=== PATIENT | male | born 1940 | race Caucasian/White ===

== ENCOUNTER 2020-08-26 12:20 | Inpatient (IN) | payer MEDICARE, OTHER ==
[~2020-08-26] VITALS: Ht 180.3 cm; Wt 106.5 kg
[~2020-08-26 12:20] MED LIST: ACET-2267 PO; ALPR0.5T7 PO; ASCO500T17 PO; ASPI-1238 PO; BUSP5TAB59 PO; CYAN-41 PO; FERR-84 PO; FINA5TAB6 PO; LOSA50TA63 PO; PARO20TA5 PO; TIOT18CA2 IH; TMSL.4C PO
[2020-08-26] MEDS ORDERED: ONDANSETRON 4 MG (ZOFRAN) ORAL DISSOLVE TAB PO PRN (16:15)
[2020-08-26] MEDS ORDERED: ACETAMINOPHEN 325 MG TABLET PO PRN (16:15)
[2020-08-26] MEDS ORDERED: BISACODYL 10 MG SUPP (DULCOLAX) PR PRN (16:15)
[2020-08-26] MEDS ORDERED: ANTACID SUSP 30 ML UDC (MYLANTA) PO PRN (16:15)
[2020-08-26] MEDS ORDERED: MELATONIN 3 MG TABLET PO PRN (16:15)
[2020-08-26] MEDS ORDERED: ENOXAPARIN 100 MG/1 ML (LOVENOX) SYR SC SCH (16:15)
[2020-08-26] MEDS ORDERED: polyethylene glycoL POWDER 17 GM (MIRALAX) PACK PO PRN (16:15)
--- NOTE | 2020-08-26 16:20 | NUR ---
Swing Bed Note: Patient qualifies for swing bed for continued need of short term Physical and Occupational therapies (Debility r/t COVID 19) with continued oxygen monitoring and weaning (respiratory failure r/t COVID 19). Ultimate goal of patient is to get strong enough to get back to his home with his . Prior to this hospitalization patient was independent with all ADL's.
--- NOTE | 2020-08-26 16:25 | NUR ---
Admission Drug Regimen Review: Date: 08/26/20 Time: 1626 Review Completed, No Issues found
--- NOTE | 2020-08-26 16:30 | NUR ---
MARCY GUERRA JR admitted to swing bed status to room 429-1, with an admitting diagnosis of SWB , on 08/26/20 from acute inpatient status. Therapy to evaluate patient for activity needs. MARCY GUERRA JR and/or family introduced to surroundings, call light, bed controls, phone, TV, temperature control, lights, meal times, smoking policy, visitor policy, side rail policy, bathrooms, and showers. Patient rights given to patient in the handbook.. MARCY GUERRA JR and/or family member verbalized understanding that [facility] is not responsible for the loss or damage to any personal effects or valuables that are kept in the patients possession during their hospitalization. The following care plans were discussed with MARCY GUERRA JR: Discharge Plannning,,, and . MARCY GUERRA JR and/or family verbalizes understanding of the Interdisciplinary Patient Education. Patient and/or family were informed about the Rapid Response Team and its purpose. Call light with in reach and patient demonstrates understanding of how to use. MARCY GUERRA JR reports no further needs at this time.i have already done my physical assessment and will continue to monitor.
[2020-08-26 17:14] VITALS: BP 102/61
[2020-08-26] MEDS: ENOXAPARIN 100 MG/1 ML (LOVENOX) SYR SC SCH (17:42)
[2020-08-26] MEDS: TAMSULOSIN 0.4 MG (FLOMAX) CAP PO SCH (17:42)
[2020-08-26] MEDS: SENNOSIDES 8.6 MG (SENOKOT) TAB PO SCH (20:36)
[2020-08-26] MEDS: busPIRone 5 MG (BUSPAR) TAB PO SCH (20:36)
[2020-08-26] MEDS: DOCUSATE SODIUM 100 MG (COLACE) CAP PO SCH (20:36)
[2020-08-26] MEDS: ALPRAZolam 0.5 MG (XANAX) TAB PO PRN (20:36)
[2020-08-26 20:40] VITALS: BP 116/58
[2020-08-26] MEDS: inSUlin ASPART (NovoLOG) 1 UNIT/0.01 ML (CHARGE PER UNIT) SC SCH (21:25)
[2020-08-26] MEDS: CATHETER FLUSH 10 ML SYR IV SCH (21:26)
[2020-08-26] MEDS: RT-ALBUTEROL INHALER HFA (VENTOLIN HFA) 18 GM IH SCH (23:32)
[2020-08-27] MEDS: RT-ALBUTEROL INHALER HFA (VENTOLIN HFA) 18 GM IH SCH ×4 (01:27→19:23)
[2020-08-27 05:34] VITALS: BP 102/51
[2020-08-27] MEDS: CATHETER FLUSH 10 ML SYR IV SCH (05:47)
[2020-08-27] MEDS: inSUlin ASPART (NovoLOG) 1 UNIT/0.01 ML (CHARGE PER UNIT) SC SCH ×4 (05:47→20:52)
[2020-08-27] MEDS: ENOXAPARIN 100 MG/1 ML (LOVENOX) SYR SC SCH (05:54)
[2020-08-27] MEDS: UMECLIDINIUM BROMIDE (INCRUSE ELLIPTA) 7'S IH SCH (08:23)
[2020-08-27] MEDS: ASPIRIN E.C. 81 MG (ECOTRIN) TAB PO SCH (08:33)
[2020-08-27] MEDS: PARoxetine 20 MG (PAXIL) TAB PO SCH (08:33)
[2020-08-27] MEDS: DOCUSATE SODIUM 100 MG (COLACE) CAP PO SCH ×2 (08:33→21:19)
[2020-08-27] MEDS: FINASTERIDE (PROSCAR) 5 MG TAB PO SCH (08:33)
[2020-08-27] MEDS: PANTOPRAZOLE 40 MG (PROTONIX) TAB PO SCH (08:33)
[2020-08-27] MEDS: SENNOSIDES 8.6 MG (SENOKOT) TAB PO SCH ×2 (08:33→21:16)
[2020-08-27] MEDS: busPIRone 5 MG (BUSPAR) TAB PO SCH ×2 (08:33→21:19)
[2020-08-27] MEDS: LOSARTAN 50 MG (COZAAR) TAB PO SCH (08:33)
[2020-08-27] MEDS: POTASSIUM CL 10MEQ/50ML IVPB 50 ML IV SCH (09:12)
[2020-08-27] MEDS: MAGNESIUM 1 GM/100 ML IVPB 100 ML IV SCH (09:13)
[2020-08-27] MEDS: KCL 20 MEQ TAB (K-DUR) PO SCH (09:13)
[2020-08-27] MEDS: ALPRAZolam 0.5 MG (XANAX) TAB PO PRN ×2 (09:52→21:18)
--- NOTE | 2020-08-27 11:15 | Occupational Therapy Eval ---
OT Evaluation-General/PLF Medical Diagnosis Admission Date Aug 26, 2020 at 16:08 Medical Diagnosis: ARF due to COVID19 Onset Date: Aug 13, 2020 Therapy Diagnosis Therapy Diagnosis: Decreased ADL status Precautions Precautions/Isolations: Airborne Isolation, Standard Precautions Weight Bear Status Weight Bearing Restriction: Full Weight Bearing Referral Referral Reason: Activity Tolerance, Self Care, Evaluation/Treatment, Strengthening/ROM Medical History Pertinent Medical History: Smoking Additional Medical History HTN, BPH, anx/ depression, DDD Current History Pt tests + for COVID 19 from outside facility. Pt comes in from home with increased SOB 08/13. Pt swings 08/27 Reviewed History: Yes Social History Home: Single Level Current Living Status: Spouse Entry Into Home: Stairs With Railing Steps Into Home: 3 ADL-Prior Level of Function SCALE: Activities may be completed with or without assistive devices. 6-Xwqkapyvtu-kulejgu completes the activity by him/herself with no assistance from a helper. 5-Set-up or Clean-up Assistance-helper sets up or cleans up; patient completes activity. [place] assists only prior to or following the activity. 4-Supervision or Touching Assistance-helper provides verbal cues and/or touching/steadying and/or contact guard assistance as patient completes activity. Assistance may be provided throughout the activity or intermittently. 3-Partial/Moderate Assistance-helper does LESS THAN HALF the effort. [place] lifts, holds or supports trunk or limbs, but provides less than half the effort. 2-Substantial/Maximal Assistance-helper does MORE THAN HALF the effort. [place] lifts or holds trunk or limbs and provides more than half the effort. 8-Myiqdmypd-gskxov does ALL the effort. Patient does none of the effort to complete the activity. Or, the assistance of 2 or more helpers is required for the patient to complete the activity. If activity was not attempted, code reason: 7-Patient Refused. 9-Not Applicable-not attempted and the patient did not perform the activity before the current illness, exacerbation or injury. 10-Not Attempted due to Environmental Limitations-(lack of equipment, weather restraints, etc.). 88-Not Attempted due to Medical Conditions or Safety Concerns. ADL PLOF Comments IND without use of AE Self Care: Independent Functional Cognition: Independent DME/Equipment: Bath Bench, Grab Bars, Shower DME/Equipment Comments bc, gb, shower Occupation: retired [employer] [address] Self: Yes OT Current Status Subjective Pt in recliner upon entry. Alert/ oriented. Pt agrees to OT eval/ treat, desires showering. Pt denies pain, states desire for home. Pt is educated on SWB status and increase of OT. Pt agrees. Pt has intermittent SOB, requires cues for breathing techniques. Mental Status/Objective Patient Orientation: Person, Place, Situation, Normal For Age Attachments: Oxygen (8) Current Glasses/Contacts: Yes Hearing Aids: No Dentures/Partials: Yes Hand Dominance: Right Upper Extremity ROM WFL BUE Upper Extremity Coordination WFL BUE Upper Extremity Sensation WFL BUE Upper Extremity Strength WFL BUE (4/5) Edema: none noted. ADL-Treatment Eating (QC): 6 Oral Hygiene (QC): 6 Shower/Bathe Self (QC): 4 (SBA during stance, cues for breath in trunk flexion) Upper Body Dressing (QC): 6 (IND in stance. Button up. Pt's 02 at 89% in stance. Regains within 30 sec to 90%) Lower Body Dressing (QC): 4 (SBA, cues for breath in bending/ recovery post- bending.) On/Off Footwear (QC): 3 (min A due to fatigue/ SOB/ new socks.) Toileting Hygiene (QC): 4 (SBA in stance.) Other Treatments Pt sit to stand with SUP. Pt ambulates to shower, cues for positioning/ safety. Pt doffs clothes SBA/ showering with SBA. 02 monitored prior/ immediately post- shower with >90% found. Pt dresses/ during bending requires cues for breath. Pt sit to stand and ambulates to chair with good balance with walker. Pt's 02 88% upon sit. Pt cues for breath. Stands during UB dressing (good balance in static stance, no use of walker). Cues for breath due to 89% 02 reading. No SOB noted. Pt denies needs, call light in reach, pt educated on continued OT for rehabilitation and increase of fx activity tolerance/ breath support during tasks. Pt agrees. Education OT Patient Education: Correct positioning, Modified ADL techniques, Progress toward Goal/Update tx plan, Purpose of tx/functional activities, Rehab process, Safety issues, Transfer techniques Teaching Recipient: Patient Teaching Methods: Demonstration, Discussion Response to Teaching: Verbalize Understanding, Return Demonstration, Reinforcement Needed OT Short Term Goals Short Term Goals Lower body dressin Putting on/taking off footwear: 5 OT Fpc Goals Hydro Excavation Operator Goals Time Frame: Sep 10, 2020 Eating (QC): 6 Oral Hygiene (QC): 6 Toileting Hygiene (QC): 6 Shower/Bathe Self (QC): 6 Upper Body Dressing (QC): 6 Lower Body Dressing (QC): 6 On/Off Footwear (QC): 6 1=Demonstrate adherence to instructed precautions during ADL tasks. 2=Patient will verbalize/demonstrate understanding of assistive devices/modifications for ADL. 3=Patient will improve strength/tolerance for activity to enable patient to perform ADL's. OT Education/Plan Problem List/Assessment Assessment: Decreased Activ Tolerance, Impaired Funct Balance, Impaired I ADL's, Impaired Self-Care Skills Discharge Recommendations Plan/Recommendations: Continue POC Therapy Discharge Recommendati: Home & Family, Post Acute OT Treatment Plan/Plan of Care Treatment,Training & Education: Yes Patient would benefit from OT for education, treatment and training to promote independence in ADL's, mobility, safety and/or upper extremity function for ADL's. Plan of Care: ADL Retraining, Functional Mobility, UE Funct Exercise/Act Treatment Duration: Sep 10, 2020 Frequency: 5 times per week Estimated Hrs Per Day: .25 hour per day Agreement: Yes Rehab Potential: Fair Time/GCodes Start Time: 10:40 Stop Time: 11:05 Total Time Billed (hr/min): 25 Billed Treatment Time 1, EVM (10), ADL (15)= 25 JOSE C PARSON OTR Aug 27, 2020 11:15
--- NOTE | 2020-08-27 15:43 | Physical Therapy Evaluation ---
PT Evaluation-General Medical Diagnosis Admission Date Aug 26, 2020 at 16:08 Medical Diagnosis: ARF due to COVID19 Onset Date: Aug 12, 2020 Therapy Diagnosis Therapy Diagnosis: impaired mobility, strength, endurance Precautions Precautions/Isolations: Airborne Isolation, Standard Precautions Referral Physician: Carmen Reason for Referral: Evaluation/Treatment Medical History Pertinent Medical History: Smoking Additional Medical History Past Medical History Surgeries: Cardiac, Joint Replacement Cardiac: High Cholesterol, Hypertension Gastrointestinal: Pancreatitis Musculoskeletal: Degenerate Disk Disease Psychosocial: Anxiety Reviewed History: Yes Social History Home: Single Level Current Living Status: Spouse Entry Into Home: Stairs With Railing PT Steps Into Home: 3 Prior Prior Level of Function SCALE: Activities may be completed with or without assistive devices. 2-Pczsjdroht-ingrlkz completes the activity by him/herself with no assistance from a helper. 5-Set-up or Clean-up Assistance-helper sets up or cleans up; patient completes activity. [place] assists only prior to or following the activity. 4-Supervision or Touching Assistance-helper provides verbal cues and/or touching/steadying and/or contact guard assistance as patient completes activity. Assistance may be provided throughout the activity or intermittently. 3-Partial/Moderate Assistance-helper does LESS THAN HALF the effort. [place] lifts, holds or supports trunk or limbs, but provides less than half the effort. 2-Substantial/Maximal Assistance-helper does MORE THAN HALF the effort. [place] lifts or holds trunk or limbs and provides more than half the effort. 7-Zoamenvwe-ihfxzi does ALL the effort. Patient does none of the effort to complete the activity. Or, the assistance of 2 or more helpers is required for the patient to complete the activity. If activity was not attempted, code reason: 7-Patient Refused. 9-Not Applicable-not attempted and the patient did not perform the activity before the current illness, exacerbation or injury. 10-Not Attempted due to Environmental Limitations-(lack of equipment, weather restraints, etc.). 88-Not Attempted due to Medical Conditions or Safety Concerns. Bed Mobility: 6 Transfers (B,C,W/C): 6 Gait: 6 Stairs: 6 Indoor Mobility (Ambulation): Independent Stairs: Independent PT Evaluation-Current Subjective Patient in recliner pre tx, agrees to PT, has minor pain in bottom due to sitting or laying on it. Pt/Family Goals to get stronger and get off oxygen Objective Patient Orientation: Person, Place, Situation Attachments: Oxygen ROM/Strength ROM Lower Extremities WNL Strength Lower Extremities 4+/5 gross BLE Sensory Hearing: Functional Hand Dominance: Right Sensation Right Lower Extremit: Intact Sensation Left Lower Extremity: Intact Transfers Roll Left & Right (QC): 6 Sit to Lying (QC): 6 Lying to Sitting/Side of Bed(Q: 6 Sit to Stand (QC): 5 Chair/Fzt-pk-Ofzsj Xfer(QC): 5 Toilet Transfer (QC): 5 Car Transfer (QC): 9 Gait Does the Patient Walk?: Yes Mode of Locomotion: Walk Anticipated Mode of Locomotion: Walk Walk 10 feet (QC): 5 Walk 50 ft with 2 Turns(QC): 5 Walk 150 ft (QC): 5 Walking 10ft/uneven surface-QC: 9 Distance: 150' Gait Assistive Device: FWW Comments/Gait Description slow but steady ambulation, improving balance especially when turning Wheelchair Training Wheel 50 ft with 2 turns (QC): 9 Wheel 150 ft (QC): 9 Stairs 1 Step (curb) (QC): 9 4 Steps (QC): 9 12 Steps (QC): 9 Balance Sitting Static: Normal Sitting Dynamic: Normal Standing Static: Good Standing Dynamic: Good Picking up an Object (QC): 5 Treatment BLE seated exercises x20 (AP, LAQ, marching) Assessment/Needs Patient has impaired mobility, strength, endurance. He gets SOB with activity but recovers quickly. Rehab Potential: Fair PT Block Saw Operator Goals Block Saw Operator Goals PT Block Saw Operator Goals Time Frame: Sep 03, 2020 Roll Left & Right (QC): 6 Sit to Lying (QC): 6 Lying-Sitting on Side/Bed(QC): 6 Sit to Stand (QC): 6 Chair/Pek-xo-Brajo Xfer(QC): 6 Toilet Transfer (QC): 6 Car Transfer (QC): 9 Does the Patient Walk: Yes Walk 10 feet (QC): 6 Walk 50ft with 2 Turns (QC): 6 Walk 150 ft (QC): 6 Walking 10ft on Uneven Surface: 9 1 Step (curb) (QC): 9 4 Steps (QC): 9 12 Steps (QC): 9 Picking up an Object (QC): 6 Wheel 50 feet with 2 turns (QC: 9 Wheel 150 feet: 9 PT Plan Problem List Problem List: Activity Tolerance, Functional Strength, Safety, Balance, Gait, Transfer Treatment/Plan Treatment Plan: Continue Plan of Care Treatment Plan: Education, Functional Activity Syeda, Functional Strength, Gait, Safety, Therapeutic Exercise, Transfers Treatment Duration: Sep 03, 2020 Frequency: 6 times per week Estimated Hrs Per Day: .25 hour per day Patient and/or Family Agrees t: Yes Safety Risks/Education Patient Education: Gait Training, Transfer Techniques, Correct Positioning, Safety Issues Teaching Recipient: Patient Teaching Methods: Demonstration, Discussion Response to Teaching: Reinforcement Needed Discharge Recommendations Plan Patient will perform bed mobility and transfer training, balance and endurance training, functional strengthening, stair training, gait training, and education, to improve functional mobility and independence at home. Therapy Discharge Recommendati: Home & Family Time/GCodes Time In: 1440 Time Out: 1510 Total Billed Treatment Time: 30 Total Billed Treatment 1 visit EVM 20' FA 10' YONAS SUAZO PT Aug 27, 2020 15:43
[2020-08-27] MEDS: TAMSULOSIN 0.4 MG (FLOMAX) CAP PO SCH (17:34)
[2020-08-27 18:00] VITALS: BP 97/51
[2020-08-28] MEDS: RT-ALBUTEROL INHALER HFA (VENTOLIN HFA) 18 GM IH SCH ×4 (02:13→23:15)
[2020-08-28 06:03] VITALS: BP 95/50
[2020-08-28] MEDS: KCL 20 MEQ TAB (K-DUR) PO SCH (06:12)
[2020-08-28] MEDS: POTASSIUM CL 10MEQ/50ML IVPB 50 ML IV SCH (06:12)
[2020-08-28] MEDS: inSUlin ASPART (NovoLOG) 1 UNIT/0.01 ML (CHARGE PER UNIT) SC SCH (06:12)
[2020-08-28] MEDS: MAGNESIUM 1 GM/100 ML IVPB 100 ML IV SCH (06:12)
[2020-08-28 07:51] VITALS: BP 114/56
[2020-08-28] MEDS: PANTOPRAZOLE 40 MG (PROTONIX) TAB PO SCH (08:36)
[2020-08-28] MEDS: LOSARTAN 50 MG (COZAAR) TAB PO SCH (08:36)
[2020-08-28] MEDS: ASPIRIN E.C. 81 MG (ECOTRIN) TAB PO SCH (08:36)
[2020-08-28] MEDS: SENNOSIDES 8.6 MG (SENOKOT) TAB PO SCH ×2 (08:36→20:32)
[2020-08-28] MEDS: busPIRone 5 MG (BUSPAR) TAB PO SCH ×2 (08:36→20:32)
[2020-08-28] MEDS: ENOXAPARIN 40 MG/0.4 ML (LOVENOX) SYR SC SCH (08:37)
[2020-08-28] MEDS: FINASTERIDE (PROSCAR) 5 MG TAB PO SCH (08:37)
[2020-08-28] MEDS: DOCUSATE SODIUM 100 MG (COLACE) CAP PO SCH ×2 (08:37→20:32)
[2020-08-28] MEDS: PARoxetine 20 MG (PAXIL) TAB PO SCH (08:37)
[2020-08-28] MEDS ORDERED: ENOXAPARIN 100 MG/1 ML (LOVENOX) SYR SC SCH (09:00)
[2020-08-28] MEDS: UMECLIDINIUM BROMIDE (INCRUSE ELLIPTA) 7'S IH SCH (10:20)
--- NOTE | 2020-08-28 10:24 | Occupational Ther Daily Note ---
OT Current Status-Daily Note Subjective Pt in recliner. Alert/ oriented. Agrees to tx. Motivated to return home. Now on 6L 02. States completed ther ex with theraband 2-3x yesterday. States feels less SOB. Mental Status/Objective Patient Orientation: Normal For Age Attachments: Oxygen (6L) ADL-Treatment Therapy Code Descriptions/Definitions Functional [place] Measure: 0=Not Assessed/NA 4=Minimal Assistance 1=Total Assistance 5=Supervision or Setup 2=Maximal Assistance 6=Modified [place] 3=Moderate Assistance 7=Complete IndependenceSCALE: Activities may be completed with or without assistive devices. 0-Dnqxmfogrv-fnwgljz completes the activity by him/herself with no assistance from a helper. 5-Set-up or Clean-up Assistance-helper sets up or cleans up; patient completes activity. [place] assists only prior to or following the activity. 4-Supervision or Touching Assistance-helper provides verbal cues and/or touching/steadying and/or contact guard assistance as patient completes activity. Assistance may be provided throughout the activity or intermittently. 3-Partial/Moderate Assistance-helper does LESS THAN HALF the effort. [place] lifts, holds or supports trunk or limbs, but provides less than half the effort. 2-Substantial/Maximal Assistance-helper does MORE THAN HALF the effort. [place] lifts or holds trunk or limbs and provides more than half the effort. 1-Tcbnwjbht-zqifat does ALL the effort. Patient does none of the effort to complete the activity. Or, the assistance of 2 or more helpers is required for the patient to complete the activity. If activity was not attempted, code reason: 7-Patient Refused. 9-Not Applicable-not attempted and the patient did not perform the activity before the current illness, exacerbation or injury. 10-Not Attempted due to Environmental Limitations-(lack of equipment, weather restraints, etc.). 88-Not Attempted due to Medical Conditions or Safety Concerns. Eating (QC): 6 Shower/Bathe Self (QC): 7 Toilet Transfer (QC): 7 Other Treatment Pt in recliner. Sit to stands IND to walker level. Pt completes 5-6 min standing ther ex to focus on fx activity tolerance, UE movement/ strength and balance. Pt completes 10-15 reps bilaterally in stance of the following exercises: bicep curls, shoulder flexion, tricep extension. Pt's 02 maintains >90%. Pt sits for rest, completes 15 reps of scaption bilaterally and external shoulder rotation. Pt's 02 maintain. Pt denies toileting/ ADL tasks. Pt left in room with all needs met, call light in reach. Nursing notified of pt's sats. Education OT Patient Education: Disease process, Exercise program, Home exercise program, Progress toward Goal/Update tx plan Teaching Recipient: Patient Teaching Methods: Demonstration, Discussion Response to Teaching: Verbalize Understanding, Return Demonstration OT Short Term Goals Short Term Goals Lower body dressin Putting on/taking off footwear: 5 OT [place] Neck Whipper Goals [place] Neck Whipper Goals Time Frame: Sep 10, 2020 Eating (QC): 6 Oral Hygiene (QC): 6 Toileting Hygiene (QC): 6 Shower/Bathe Self (QC): 6 Upper Body Dressing (QC): 6 Lower Body Dressing (QC): 6 On/Off Footwear (QC): 6 1=Demonstrate adherence to instructed precautions during ADL tasks. 2=Patient will verbalize/demonstrate understanding of assistive devices/modifications for ADL. 3=Patient will improve strength/tolerance for activity to enable patient to perform ADL's. OT Education/Plan Problem List/Assessment Assessment: Decreased Activ Tolerance, Edema, Impaired I ADL's Discharge Recommendations Plan/Recommendations: Continue POC Therapy Discharge Recommendati: Home & Family, Post Acute OT Treatment Plan/Plan of Care Treatment,Training & Education: Yes Patient would benefit from OT for education, treatment and training to promote independence in ADL's, mobility, safety and/or upper extremity function for ADL's. Plan of Care: ADL Retraining, Functional Mobility, UE Funct Exercise/Act Treatment Duration: Sep 10, 2020 Frequency: 5 times per week Estimated Hrs Per Day: .25 hour per day Agreement: Yes Rehab Potential: Fair Time/GCodes Start Time: 09:50 Stop Time: 10:05 Total Time Billed (hr/min): 15 Billed Treatment Time 1, EX (15) JOSE C PARSON OTR Aug 28, 2020 10:24
--- NOTE | 2020-08-28 15:40 | Physical Therapy Daily Note ---
PT Daily Note-Current Subjective Patient in recliner pre tx, agrees to PT, no complaints of pain. Appearance Patient in recliner post tx with nurse call, phone, tray, all needs met Mental Status Patient Orientation: Normal For Age Attachments: Oxygen Transfers SCALE: Activities may be completed with or without assistive devices. 0-Empekpbmbt-luutvou completes the activity by him/herself with no assistance from a helper. 5-Set-up or Clean-up Assistance-helper sets up or cleans up; patient completes activity. [place] assists only prior to or following the activity. 4-Supervision or Touching Assistance-helper provides verbal cues and/or touching/steadying and/or contact guard assistance as patient completes activity. Assistance may be provided throughout the activity or intermittently. 3-Partial/Moderate Assistance-helper does LESS THAN HALF the effort. [place] lifts, holds or supports trunk or limbs, but provides less than half the effort. 2-Substantial/Maximal Assistance-helper does MORE THAN HALF the effort. [place] lifts or holds trunk or limbs and provides more than half the effort. 7-Rnimxicjl-wpxksb does ALL the effort. Patient does none of the effort to complete the activity. Or, the assistance of 2 or more helpers is required for the patient to complete the activity. If activity was not attempted, code reason: 7-Patient Refused. 9-Not Applicable-not attempted and the patient did not perform the activity before the current illness, exacerbation or injury. 10-Not Attempted due to Environmental Limitations-(lack of equipment, weather restraints, etc.). 88-Not Attempted due to Medical Conditions or Safety Concerns. Sit to Stand (QC): 5 Chair/Lwr-bo-Lsyrp Xfer(QC): 5 Gait Training Distance: 200' Walk 10 feet (QC): 5 Walk 50 ft with 2 Turns(QC): 5 Walk 150 ft (QC): 5 Gait Assistive Device: FWW Patient ambulated to the doorway and around his room several times for a total of about 200' with a rolling walker with setup, no LOB but slow ambulation, slightly SOB after ambulation Exercises Seated Therapy Exercises: Ankle pumps, Long arc quads Seated Reps: 20 Treatments ambulation, LE exercise Assessment Current Status: Fair Progress improving endurance, on less oxygen now PT Cdl Program Coordinator Goals Cdl Program Coordinator Goals PT Cdl Program Coordinator Goals Time Frame: Sep 03, 2020 Roll Left & Right (QC): 6 Sit to Lying (QC): 6 Lying-Sitting on Side/Bed(QC): 6 Sit to Stand (QC): 6 Chair/Cbw-zs-Wswyg Xfer(QC): 6 Toilet Transfer (QC): 6 Car Transfer (QC): 9 Does the Patient Walk: Yes Walk 10 feet (QC): 6 Walk 50ft with 2 Turns (QC): 6 Walk 150 ft (QC): 6 Walking 10ft on Uneven Surface: 9 1 Step (curb) (QC): 9 4 Steps (QC): 9 12 Steps (QC): 9 Picking up an Object (QC): 6 Wheel 50 feet with 2 turns (QC: 9 Wheel 150 feet: 9 PT Plan Problem List Problem List: Activity Tolerance, Functional Strength, Safety, Balance, Gait, Transfer Treatment/Plan Treatment Plan: Continue Plan of Care Treatment Plan: Education, Functional Activity Syeda, Functional Strength, Gait, Safety, Therapeutic Exercise, Transfers Treatment Duration: Sep 03, 2020 Frequency: 6 times per week Estimated Hrs Per Day: .25 hour per day Patient and/or Family Agrees t: Yes Safety Risks/Education Patient Education: Gait Training, Transfer Techniques, Correct Positioning, Safety Issues Teaching Recipient: Patient Teaching Methods: Demonstration, Discussion Response to Teaching: Reinforcement Needed Time/GCodes Time In: 1515 Time Out: 1530 Total Billed Treatment Time: 15 Total Billed Treatment 1 visit GT 15' YONAS SUAZO PT Aug 28, 2020 15:40
[2020-08-28 16:39] VITALS: BP 103/56
[2020-08-28 17:51] VITALS: BP 103/56
[2020-08-28] MEDS: TAMSULOSIN 0.4 MG (FLOMAX) CAP PO SCH (17:54)
[2020-08-28] MEDS: ALPRAZolam 0.5 MG (XANAX) TAB PO PRN (20:32)
[2020-08-29] MEDS: RT-ALBUTEROL INHALER HFA (VENTOLIN HFA) 18 GM IH SCH ×4 (01:19→23:15)
[2020-08-29 03:47] VITALS: BP 116/62
[2020-08-29 05:48] VITALS: BP 116/62
[2020-08-29] MEDS: KCL 20 MEQ TAB (K-DUR) PO SCH (07:05)
[2020-08-29] MEDS: UMECLIDINIUM BROMIDE (INCRUSE ELLIPTA) 7'S IH SCH (07:37)
[2020-08-29] MEDS: ASPIRIN E.C. 81 MG (ECOTRIN) TAB PO SCH (08:30)
[2020-08-29] MEDS: SENNOSIDES 8.6 MG (SENOKOT) TAB PO SCH ×2 (08:30→20:14)
[2020-08-29] MEDS: DOCUSATE SODIUM 100 MG (COLACE) CAP PO SCH ×2 (08:30→20:14)
[2020-08-29] MEDS: LOSARTAN 50 MG (COZAAR) TAB PO SCH (08:31)
[2020-08-29] MEDS: busPIRone 5 MG (BUSPAR) TAB PO SCH ×2 (08:31→20:09)
[2020-08-29] MEDS: PANTOPRAZOLE 40 MG (PROTONIX) TAB PO SCH (08:31)
[2020-08-29] MEDS: ENOXAPARIN 40 MG/0.4 ML (LOVENOX) SYR SC SCH (08:31)
[2020-08-29] MEDS: FINASTERIDE (PROSCAR) 5 MG TAB PO SCH (08:31)
[2020-08-29] MEDS: PARoxetine 20 MG (PAXIL) TAB PO SCH (08:31)
--- NOTE | 2020-08-29 10:37 | Physical Therapy Daily Note ---
PT Daily Note-Current Subjective Pt agreeable to PT. Agrees to ther ex. Mental Status Patient Orientation: Person, Place, Time, Situation Attachments: Oxygen Transfers SCALE: Activities may be completed with or without assistive devices. 5-Bnkzyvxwdx-nhpasyk completes the activity by him/herself with no assistance from a helper. 5-Set-up or Clean-up Assistance-helper sets up or cleans up; patient completes activity. [place] assists only prior to or following the activity. 4-Supervision or Touching Assistance-helper provides verbal cues and/or touching/steadying and/or contact guard assistance as patient completes activity. Assistance may be provided throughout the activity or intermittently. 3-Partial/Moderate Assistance-helper does LESS THAN HALF the effort. [place] lifts, holds or supports trunk or limbs, but provides less than half the effort. 2-Substantial/Maximal Assistance-helper does MORE THAN HALF the effort. [place] lifts or holds trunk or limbs and provides more than half the effort. 8-Hanwvdqmj-oqtdyf does ALL the effort. Patient does none of the effort to complete the activity. Or, the assistance of 2 or more helpers is required for the patient to complete the activity. If activity was not attempted, code reason: 7-Patient Refused. 9-Not Applicable-not attempted and the patient did not perform the activity before the current illness, exacerbation or injury. 10-Not Attempted due to Environmental Limitations-(lack of equipment, weather restraints, etc.). 88-Not Attempted due to Medical Conditions or Safety Concerns. Sit to Stand (QC): 4 Gait Training Does the Patient Walk?: Yes Walk 10 feet (QC): 4 Walk 50 ft with 2 Turns(QC): 4 Walk 150 ft (QC): 4 (150 ft x 2 in room with walker with SBA and oxygen in situ) Exercises Seated Therapy Exercises: Ankle pumps, Sit to stand (x 5 each), Long arc quads, Hip flexion, Hip abd/add Seated Reps: 20 Treatments Gait and ther ex; oxygen in situ during and post treatment, Assessment Current Status: Good Progress Progressing well with good functional mobility. Slightly SOA with ambulation but recovers quickly with rest. PT [place] Goals [place] Goals PT [place]erson Goals Time Frame: Sep 03, 2020 Roll Left & Right (QC): 6 Sit to Lying (QC): 6 Lying-Sitting on Side/Bed(QC): 6 Sit to Stand (QC): 6 Chair/Fmp-bb-Chvti Xfer(QC): 6 Toilet Transfer (QC): 6 Car Transfer (QC): 9 Does the Patient Walk: Yes Walk 10 feet (QC): 6 Walk 50ft with 2 Turns (QC): 6 Walk 150 ft (QC): 6 Walking 10ft on Uneven Surface: 9 1 Step (curb) (QC): 9 4 Steps (QC): 9 12 Steps (QC): 9 Picking up an Object (QC): 6 Wheel 50 feet with 2 turns (QC: 9 Wheel 150 feet: 9 PT Plan Problem List Problem List: Activity Tolerance, Functional Strength, Safety Treatment/Plan Treatment Plan: Continue Plan of Care Treatment Plan: Education, Functional Activity Syeda, Functional Strength, Gait, Safety, Therapeutic Exercise, Transfers Treatment Duration: Sep 03, 2020 Frequency: 6 times per week Estimated Hrs Per Day: .25 hour per day Patient and/or Family Agrees t: Yes Safety Risks/Education Patient Education: Safety Issues Teaching Recipient: Patient Teaching Methods: Discussion Response to Teaching: Verbalize Understanding Time/GCodes Time In: 930 Time Out: 955 Total Billed Treatment Time: 25 Total Billed Treatment visit EX 15 GT 10 KAREN CASTANEDA PT Aug 29, 2020 10:37
--- NOTE | 2020-08-29 13:06 | Occupational Ther Daily Note ---
OT Current Status-Daily Note Subjective Pt in recliner. Alert/oriented. Agrees to tx. Pt denies pain. Mental Status/Objective Patient Orientation: Normal For Age Attachments: Oxygen (5L) ADL-Treatment Therapy Code Descriptions/Definitions Functional [place] Measure: 0=Not Assessed/NA 4=Minimal Assistance 1=Total Assistance 5=Supervision or Setup 2=Maximal Assistance 6=Modified [place] 3=Moderate Assistance 7=Complete IndependenceSCALE: Activities may be completed with or without assistive devices. 6-Kdnomtcrlb-imnbztz completes the activity by him/herself with no assistance from a helper. 5-Set-up or Clean-up Assistance-helper sets up or cleans up; patient completes activity. [place] assists only prior to or following the activity. 4-Supervision or Touching Assistance-helper provides verbal cues and/or touching/steadying and/or contact guard assistance as patient completes activity. Assistance may be provided throughout the activity or intermittently. 3-Partial/Moderate Assistance-helper does LESS THAN HALF the effort. [place] lifts, holds or supports trunk or limbs, but provides less than half the effort. 2-Substantial/Maximal Assistance-helper does MORE THAN HALF the effort. [place] lifts or holds trunk or limbs and provides more than half the effort. 5-Oosygcpmx-lgfllr does ALL the effort. Patient does none of the effort to complete the activity. Or, the assistance of 2 or more helpers is required for the patient to complete the activity. If activity was not attempted, code reason: 7-Patient Refused. 9-Not Applicable-not attempted and the patient did not perform the activity before the current illness, exacerbation or injury. 10-Not Attempted due to Environmental Limitations-(lack of equipment, weather restraints, etc.). 88-Not Attempted due to Medical Conditions or Safety Concerns. Eating (QC): 6 Oral Hygiene (QC): 6 Shower/Bathe Self (QC): 4 (SBA sponge bath) Upper Body Dressing (QC): 6 On/Off Footwear: 4 (cues for breath) Other Treatment Pt in chair. Completes 3 laps around with walker. Pt states SOB, sits EOB. Pt returns to chair to complete sponge bath with SBA-SUP. Pt denies SOB, cues s for breath upon bending. Pt denies needs, call light in reach. Education OT Patient Education: Correct positioning, Progress toward Goal/Update tx plan, Purpose of tx/functional activities, Reviewed precautions, Safety issues Teaching Recipient: Patient Teaching Methods: Demonstration, Discussion Response to Teaching: Verbalize Understanding, Return Demonstration OT Short Term Goals Short Term Goals Lower body dressin Putting on/taking off footwear: 5 OT Hosiery Pairer Goals Fdc Goals Time Frame: Sep 10, 2020 Eating (QC): 6 Oral Hygiene (QC): 6 Toileting Hygiene (QC): 6 Shower/Bathe Self (QC): 6 Upper Body Dressing (QC): 6 Lower Body Dressing (QC): 6 On/Off Footwear (QC): 6 1=Demonstrate adherence to instructed precautions during ADL tasks. 2=Patient will verbalize/demonstrate understanding of assistive devices/modifications for ADL. 3=Patient will improve strength/tolerance for activity to enable patient to perform ADL's. OT Education/Plan Problem List/Assessment Assessment: Decreased Activ Tolerance, Decreased UE Strength, Impaired I ADL's, Impaired Self-Care Skills Discharge Recommendations Plan/Recommendations: Continue POC Therapy Discharge Recommendati: Home & Family, Post Acute OT Treatment Plan/Plan of Care Treatment,Training & Education: Yes Patient would benefit from OT for education, treatment and training to promote i ndependence in ADL's, mobility, safety and/or upper extremity function for ADL's. Plan of Care: ADL Retraining, Functional Mobility, UE Funct Exercise/Act Treatment Duration: Sep 10, 2020 Frequency: 5 times per week Estimated Hrs Per Day: .25 hour per day Agreement: Yes Rehab Potential: Fair Time/GCodes Start Time: 11:05 Stop Time: 11:30 Total Time Billed (hr/min): 25 Billed Treatment Time 1, CELSA GARCIA KAILEY OTR Aug 29, 2020 13:06
--- NOTE | 2020-08-29 14:16 | Progress Note - Hospitalist ---
Subjective HPI/CC On Admission Date Seen by Provider: Aug 29, 2020 Time Seen by Provider: 11:00 Subjective/Events-last exam He is up working with physical therapy. He continues to improve. He has no complaints or concerns. Objective Exam Vital Signs Vital Signs Date Time Temp Pulse Resp B/P (MAP) Pulse Ox O2 Delivery O2 Flow Rate FiO2 08/29/20 09:00 High Flow N/C 5.00 08/29/20 07:38 94 08/29/20 05:48 36.4 64 20 116/62 (80) Capillary Refill : Less Than 3 SecondsLess Than 3 Seconds General Appearance: No Apparent Distress, Chronically ill Neck: Normal Inspection, Supple Respiratory: Lungs Clear, Normal Breath Sounds, No Respiratory Distress Cardiovascular: Regular Rate, Rhythm, No Edema, No Murmur Gastrointestinal: Normal Bowel Sounds, Non Tender, Soft Extremity: Normal Inspection, Non Tender, No Pedal Edema Neurologic/Psychiatric: Alert, Oriented x3, No Motor/Sensory Deficits, Normal Mood/Affect Skin: Normal Color, Warm/Dry Results/Procedures Lab Patient resulted labs reviewed. Imaging: Reviewed Imaging Report Assessment/Plan Assessment and Plan Assess & Plan/Chief Complaint Acute respiratory failure due to COVID-19 Pneumonia due to COVID-19 Supplemental oxygen as needed, down to 4 L nasal cannula Received decadron, remdesivir and convalescent plasma Debility PT/OT Prediabetes HTN Anxiety Depression BPH Continue home meds DVT Prophylaxis: Lovenox Diagnosis/Problems Diagnosis/Problems (1) Acute respiratory failure due to COVID-19 Status: Acute (2) Pneumonia due to COVID-19 virus Status: Acute (3) Debility Status: Acute Clinical Quality Measures DVT/VTE Risk/Contraindication: Risk Factor Score Per Nursin DAVID CARBAJAL MD Aug 29, 2020 14:16
--- NOTE | 2020-08-29 15:05 | NUR ---
"RD ASSESSMENT PMHx: COPD; pancreatitis; HTN; hypercholesterolemia; PT INTERACTION: Note pt is currently in COVID isolation, per chart review. Note all diet information for nutrition follow-up is per Sohail RN or per chart review. Sohail states current appetite appears good. Note avg PO intake 96% x3d, per chart review. Sohail states no issues with nausea, vomiting, constipation, or diarrhea that he is aware of. Note last BM was 08/27, and pt currently on bowel regimen of colace BID, and senna BID, per chart review. ABNORMAL NUTRITION-RELATED LAB VALUES No recent labs drawn at this time. Est. kcal needs: 6465-7060 kcal | 15-20 kcal/kg Est. Pro needs: 85-107 g Pro | 0.8-1.0 g Pro/kg PES STATEMENT: Given current PO intake, no nutrition diagnosis at this time (NO-1.1). INTERVENTION: Continue with current diet order of Regular diet. DC current supplementation order of Ensure Enlive with meals TID. Note pt is consuming >75% meals. Will continue to follow and reassess as pt needs, intake, and status change. Daniel Tapia, MS RD LD"
--- NOTE | 2020-08-29 16:44 | NUR ---
Visited with patient's Wilda. We talked about possible discharge to home on Tuesday if Karlo continues to make improvements like he has been. He is using 4LPM via [place] of oxygen and is currently tolerating that well. If oxygen is needed then she indicated they would like to use [facility]. She requested home health care to help monitor his oxygen saturations and ensure strengthening once home. She indicated that they would like home health care from [facility]. Will f/u with Karlo and Wilda on Tuesday for finalized discharge planning.
[2020-08-29 17:00] VITALS: BP 109/55
[2020-08-29] MEDS: TAMSULOSIN 0.4 MG (FLOMAX) CAP PO SCH (18:22)
[2020-08-29] MEDS: ALPRAZolam 0.5 MG (XANAX) TAB PO PRN (20:09)
[2020-08-30] MEDS: RT-ALBUTEROL INHALER HFA (VENTOLIN HFA) 18 GM IH SCH ×4 (04:05→22:59)
[2020-08-30 04:19] VITALS: BP 109/55
[2020-08-30] MEDS: KCL 20 MEQ TAB (K-DUR) PO SCH (05:38)
[2020-08-30 05:39] VITALS: BP 118/56
[2020-08-30] MEDS: UMECLIDINIUM BROMIDE (INCRUSE ELLIPTA) 7'S IH SCH (07:37)
[2020-08-30] MEDS: LOSARTAN 50 MG (COZAAR) TAB PO SCH (09:08)
[2020-08-30] MEDS: DOCUSATE SODIUM 100 MG (COLACE) CAP PO SCH ×2 (09:08→19:23)
[2020-08-30] MEDS: PANTOPRAZOLE 40 MG (PROTONIX) TAB PO SCH (09:08)
[2020-08-30] MEDS: ASPIRIN E.C. 81 MG (ECOTRIN) TAB PO SCH (09:08)
[2020-08-30] MEDS: FINASTERIDE (PROSCAR) 5 MG TAB PO SCH (09:09)
[2020-08-30] MEDS: ENOXAPARIN 40 MG/0.4 ML (LOVENOX) SYR SC SCH (09:09)
[2020-08-30] MEDS: SENNOSIDES 8.6 MG (SENOKOT) TAB PO SCH ×2 (09:09→19:23)
[2020-08-30] MEDS: busPIRone 5 MG (BUSPAR) TAB PO SCH ×2 (09:09→20:04)
[2020-08-30] MEDS: PARoxetine 20 MG (PAXIL) TAB PO SCH (09:26)
--- NOTE | 2020-08-30 13:28 | Physical Therapy Daily Note ---
PT Daily Note-Current Subjective Pt. up in bedside chair and agrees to therapy. States he has been up walking around the room today. Reports he gets SOB so easily. Mental Status Patient Orientation: Person, Place, Time, Situation Attachments: Oxygen Transfers SCALE: Activities may be completed with or without assistive devices. 8-Gxwesihswt-iglcofb completes the activity by him/herself with no assistance from a helper. 5-Set-up or Clean-up Assistance-helper sets up or cleans up; patient completes activity. [place] assists only prior to or following the activity. 4-Supervision or Touching Assistance-helper provides verbal cues and/or touching/steadying and/or contact guard assistance as patient completes activity. Assistance may be provided throughout the activity or intermittently. 3-Partial/Moderate Assistance-helper does LESS THAN HALF the effort. [place] lifts, holds or supports trunk or limbs, but provides less than half the effort. 2-Substantial/Maximal Assistance-helper does MORE THAN HALF the effort. [place] lifts or holds trunk or limbs and provides more than half the effort. 6-Nopdjgsne-bygqwn does ALL the effort. Patient does none of the effort to complete the activity. Or, the assistance of 2 or more helpers is required for the patient to complete the activity. If activity was not attempted, code reason: 7-Patient Refused. 9-Not Applicable-not attempted and the patient did not perform the activity before the current illness, exacerbation or injury. 10-Not Attempted due to Environmental Limitations-(lack of equipment, weather restraints, etc.). 88-Not Attempted due to Medical Conditions or Safety Concerns. Sit to Stand (QC): 6 Gait Training Does the Patient Walk?: Yes Distance: 2 x 75 ft Walk 10 feet (QC): 4 Walk 50 ft with 2 Turns(QC): 4 Gait Persons Needed: 1 Gait Assistive Device: FWW assist to manage O2 line, SBA with patient Exercises Seated Therapy Exercises: Ankle pumps, Long arc quads, Hip flexion, Hip abd/add Seated Reps: 20 Treatments gait, LE exercises Assessment Current Status: Good Progress Pt. is steady with ambulation in room using FWW, primary assist needed with O2 line. He does become SOB and required a 1-2 minute seated rest period. Pt. returned to bedside chair post session with call light and all needs met, O2 in situ. PT Custodial Goals Custodial Goals PT Tech Ed/Woodshop Teacher Goals Time Frame: Sep 03, 2020 Roll Left & Right (QC): 6 Sit to Lying (QC): 6 Lying-Sitting on Side/Bed(QC): 6 Sit to Stand (QC): 6 Chair/Ptf-vm-Nyafs Xfer(QC): 6 Toilet Transfer (QC): 6 Car Transfer (QC): 9 Does the Patient Walk: Yes Walk 10 feet (QC): 6 Walk 50ft with 2 Turns (QC): 6 Walk 150 ft (QC): 6 Walking 10ft on Uneven Surface: 9 1 Step (curb) (QC): 9 4 Steps (QC): 9 12 Steps (QC): 9 Picking up an Object (QC): 6 Wheel 50 feet with 2 turns (QC: 9 Wheel 150 feet: 9 PT Plan Treatment/Plan Treatment Plan: Continue Plan of Care Treatment Plan: Education, Functional Activity Syeda, Functional Strength, Gait, Safety, Therapeutic Exercise, Transfers Treatment Duration: Sep 03, 2020 Frequency: 6 times per week Estimated Hrs Per Day: .25 hour per day Patient and/or Family Agrees t: Yes Time/GCodes Time In: 1200 Time Out: 1215 Total Billed Treatment Time: 15 Total Billed Treatment 1, GT 10', (Ex 5') JACINTA JACKSON PT Aug 30, 2020 13:28
[2020-08-30 17:19] VITALS: BP 107/52
[2020-08-30] MEDS: TAMSULOSIN 0.4 MG (FLOMAX) CAP PO SCH (20:04)
[2020-08-30] MEDS: ALPRAZolam 0.5 MG (XANAX) TAB PO PRN (20:04)
[2020-08-31 05:26] VITALS: BP 107/59
[2020-08-31] MEDS: KCL 20 MEQ TAB (K-DUR) PO SCH (05:47)
[2020-08-31] MEDS: RT-ALBUTEROL INHALER HFA (VENTOLIN HFA) 18 GM IH SCH ×2 (07:57→14:59)
[2020-08-31] MEDS: UMECLIDINIUM BROMIDE (INCRUSE ELLIPTA) 7'S IH SCH (07:57)
[2020-08-31] MEDS: busPIRone 5 MG (BUSPAR) TAB PO SCH ×2 (08:36→20:50)
[2020-08-31] MEDS: PARoxetine 20 MG (PAXIL) TAB PO SCH (08:36)
[2020-08-31] MEDS: PANTOPRAZOLE 40 MG (PROTONIX) TAB PO SCH (08:36)
[2020-08-31] MEDS: LOSARTAN 50 MG (COZAAR) TAB PO SCH (08:36)
[2020-08-31] MEDS: FINASTERIDE (PROSCAR) 5 MG TAB PO SCH (08:36)
[2020-08-31] MEDS: SENNOSIDES 8.6 MG (SENOKOT) TAB PO SCH ×2 (08:36→19:32)
[2020-08-31] MEDS: ENOXAPARIN 40 MG/0.4 ML (LOVENOX) SYR SC SCH (08:37)
[2020-08-31] MEDS: ASPIRIN E.C. 81 MG (ECOTRIN) TAB PO SCH (08:37)
[2020-08-31] MEDS: DOCUSATE SODIUM 100 MG (COLACE) CAP PO SCH ×2 (08:37→19:32)
[2020-08-31 17:18] VITALS: BP 111/57
[2020-08-31] MEDS: TAMSULOSIN 0.4 MG (FLOMAX) CAP PO SCH (20:49)
[2020-08-31] MEDS: ALPRAZolam 0.5 MG (XANAX) TAB PO PRN (20:50)
[2020-09-01] MEDS: RT-ALBUTEROL INHALER HFA (VENTOLIN HFA) 18 GM IH SCH ×3 (00:05→15:20)
[2020-09-01 03:27] VITALS: BP 111/59
[2020-09-01] MEDS: KCL 20 MEQ TAB (K-DUR) PO SCH (05:27)
[2020-09-01 05:42] VITALS: BP 111/59
--- NOTE | 2020-09-01 07:43 | NUR ---
SPO2 88% ON O2 @ 3 LPM. SPO2 DROPPED TO 84% ON ROOM AIR @ REST. REPLACED O2 @ 4 LPM. SPO2 INCREASED TO 90%. Addendum: 09/01/20 at 0751 by KANE CADENA RT Amended: Links added.
[2020-09-01] MEDS: UMECLIDINIUM BROMIDE (INCRUSE ELLIPTA) 7'S IH SCH (07:44)
[2020-09-01] MEDS: PARoxetine 20 MG (PAXIL) TAB PO SCH (09:48)
[2020-09-01] MEDS: ASPIRIN E.C. 81 MG (ECOTRIN) TAB PO SCH (09:48)
[2020-09-01] MEDS: busPIRone 5 MG (BUSPAR) TAB PO SCH (09:48)
[2020-09-01] MEDS: SENNOSIDES 8.6 MG (SENOKOT) TAB PO SCH (09:48)
[2020-09-01] MEDS: DOCUSATE SODIUM 100 MG (COLACE) CAP PO SCH (09:48)
[2020-09-01] MEDS: PANTOPRAZOLE 40 MG (PROTONIX) TAB PO SCH (09:48)
[2020-09-01] MEDS: FINASTERIDE (PROSCAR) 5 MG TAB PO SCH (09:48)
[2020-09-01] MEDS: LOSARTAN 50 MG (COZAAR) TAB PO SCH (09:48)
[2020-09-01] MEDS: ENOXAPARIN 40 MG/0.4 ML (LOVENOX) SYR SC SCH (09:49)
--- NOTE | 2020-09-01 13:03 | Therapy Team Discharge Summary ---
Therapy Discharge Summary Discharge Recommendations Date of Discharge Physical Therapy Patient dismissing to home on this date at independent [facility] with all gross motor skills. Patient is currently up independently in room and ambulates without difficulty. Patient will dismiss to home with O2 per report. Patient, upon initial evaluation, was SBA to CGA with mobility and required recovery periods due to SOA and decreased SAO2. Patient has improved with pulmonary functional and functional mobility to return to home with family and home health. Goals address and attained. Occupational Therapy Decreased Activ Tolerance, Decreased UE Strength, Impaired I ADL's, Impaired Se lf-Care Skills PT Fpc Goals Fpc Goals PT Fpc Goals Time Frame: Sep 03, 2020 Roll Left to Right (QC): 6 Sit to Lying (QC): 6 Lying-Sitting on Side/Bed(QC): 6 Sit to Stand (QC): 6 Chair/Vub-rb-Tyyzj Xfer(QC): 6 Car Transfer (QC): 9 Does the Patient Walk: Yes Walk 10 feet (QC): 6 Walk 10ft-Uneven Surface(QC): 9 Walk 50ft with 2 Turns (QC): 6 Walk 150 ft (QC): 6 Wheel 50 feet with 2 turns (QC: 9 1 Step (curb) (QC): 9 4 Steps (QC): 9 12 Steps (QC): 9 Picking up an Object (QC): 6 OT Fpc Goals Fpc Goals Time Frame: Sep 10, 2020 Eating (QC): 6 Oral Hygiene (QC): 6 Shower/Bathe Self (QC): 6 Upper Body Dressing (QC): 6 Lower Body Dressing (QC): 6 On/Off Footwear (QC): 6 Toileting Hygiene (QC): 6 Toilet/Commode Transfer (QC): 6 1=Demonstrate adherence to instructed precautions during ADL tasks. 2=Patient will verbalize/demonstrate understanding of assistive devices/modifications for ADL. 3=Patient will improve strength/tolerance for activity to enable patient to perform ADL's. PAYTON IZQUIERDO PT Sep 01, 2020 13:03
--- NOTE | 2020-09-01 13:17 | D/C HH Face to Face Order ---
D/C Face to Face Orders Instructions for Patient [facility], Patient Instructions/FollowUp: Please continue to take your medications as written. Physician to follow Patient: Dr Louise Discharge Diet for Home: Cardiac Diet Patient Data-Allergies,Ht & Wt Patient Allergies: Coded Allergies: No Known Allergies (Unverified Allergy, Unknown, 08/12/20) Home Health Need/Face to Face Date of Face to Face: Sep 01, 2020 Clinical Findings: Generalized weakness and fatigue I have seen Pt pyeq-xq-ngbm: Yes Discharged To: Home Diagnosis/Conditions: COVID 19, debility, Patient is Homebound due to: Shortness of breath/distress Homebound Status Due to the above stated illness, injury or surgical procedure (medical condition or diagnosis) and associated clinical findings, the patient is homebound because of his/her inability to leave home except with aid of a supportive device and/or person AND leaving the home requires a considerable and taxing effort or is medically contraindicated. Pt req the following assistanc: Aid of another person, Walker Home Health Nursing Orders Home Health Services Order: Nursing Services, Physical Therapy-Evaluate & Treat Therapy Orders Therapy Orders: Physical Therapy, PT to assess for OT Therapy Specific Orders: Eval assistive deivces, Teach enviro modifications/safety, Increase strength/endurance Certify Stmt I certify that this patient is under my care and that I, a nurse practitioner or a physician; a welder assistant working with me, had a face to face encounter that - meets the physician face to face encounter requirements with this patient as dated. CASS AMEZCUA MD Sep 01, 2020 13:17
--- NOTE | 2020-09-01 13:18 | Discharge Summary ---
Diagnosis/Chief Complaint Date of Admission Aug 26, 2020 at 16:08 Date of Discharge Discharge Date: Sep 01, 2020 Primary Care John Louise MD Discharge Diagnosis (1) Acute respiratory failure due to COVID-19 Status: Acute (2) Pneumonia due to COVID-19 virus Status: Acute (3) Debility Status: Acute Discharge Summary Discharge Physical Exam Allergies: Coded Allergies: No Known Allergies (Unverified Allergy, Unknown, 08/12/20) Vitals & I&Os Vital Signs Date Time Temp Pulse Resp B/P (MAP) Pulse Ox O2 Delivery O2 Flow Rate FiO2 09/01/20 09:00 95 High Flow N/C 3.00 09/01/20 05:42 36.4 61 20 111/59 (76) 08/30/20 04:19 40 General Appearance: No Apparent Distress, WD/WN Cardiovascular: Regular Rate, Rhythm, No Murmur Gastrointestinal: Normal Bowel Sounds, Non Tender, Soft Neurologic/Psychiatric: Alert, Oriented x3 Hospital Course Pt is an 80yoCM who was admitted to swing bed due to acute hypoxic respiratory failure and debility due to COVID19. He did very well and oxygen was able to be weaned to just 4lpm. This was arranged for outpatient care and he did well with therapy and was ambulating without a walker. He was discharged home in stable and improved condition. Home health was arranged as well to assist with transi tion home. Labs (last 24 hrs) Patient resulted labs reviewed. Imaging: Reviewed Imaging Report Discussion & Recommendations Discharge Planning: >30 minutes discharge planning Discharge Home Medications: Active Scripts Active Reported Tylenol Extra Strength (Acetaminophen) 500 Mg Tablet 1,000 Mg PO Q8H PRN Iron (Ferrous Sulfate) 325 Mg Tablet 325 Mg PO DAILY Vitamin C (Ascorbic Acid) 500 Mg Tablet 500 Mg PO DAILY Vitamin B-12 (Cyanocobalamin (Vitamin B-12)) 1,000 Mcg Tablet 1,000 Mcg PO DAILY Aspirin EC (Aspirin) 81 Mg Tablet.dr 81 Mg PO DAILY Spiriva (Tiotropium Jeddo) 1 Inh Aerp 1 Inh IH DAILY Paroxetine HCl 20 Mg Tablet 20 Mg PO DAILY LAST FILLED 03-17-2020 #90 Buspirone HCl 5 Mg Tablet 5 Mg PO BID Losartan Potassium 50 Mg Tablet 50 Mg PO DAILY Finasteride 5 Mg Tablet 5 Mg PO DAILY Alprazolam 0.5 Mg Tablet 0.5 Mg PO TID PRN Flomax (Tamsulosin HCl) 0.4 Mg Cap 0.4 Mg PO DAILY Instructions to patient/family Please see electronic discharge instructions given to patient. Clinical Quality Measures DVT/VTE Risk/Contraindication: Risk Factor Score Per Nursin CASS AMEZCUA MD Sep 01, 2020 13:18
--- NOTE | 2020-09-01 13:21 | Occupational Ther Daily Note ---
OT Current Status-Daily Note Subjective Pt alert, sitting in recliner. Pt agrees to therapy. No c/o pain. Mental Status/Objective Patient Orientation: Person, Place, Time, Situation Attachments: IV, Oxygen ADL-Treatment Pt stated that he has already cleaned up today. Pt stated that he was able to dress and sponge bathe all areas by self, but did not change socks. Pt agrees to doff/don socks, completed independently. Pt able to walk around room with FWW independently. Pt able to complete 4 of 6 exercises without verbal cues, required only verbal cues for correct technique and modifications. After session, pt sitting in recliner with call light/phone in reach. All needs met in room. Therapy Code Descriptions/Definitions Functional [place] Measure: 0=Not Assessed/NA 4=Minimal Assistance 1=Total Assistance 5=Supervision or Setup 2=Maximal Assistance 6=Modified [place] 3=Moderate Assistance 7=Complete IndependenceSCALE: Activities may be completed with or without assistive devices. 6-Daxsunosst-rhawxrq completes the activity by him/herself with no assistance from a helper. 5-Set-up or Clean-up Assistance-helper sets up or cleans up; patient completes activity. [place] assists only prior to or following the activity. 4-Supervision or Touching Assistance-helper provides verbal cues and/or touching/steadying and/or contact guard assistance as patient completes activity. Assistance may be provided throughout the activity or intermittently. 3-Partial/Moderate Assistance-helper does LESS THAN HALF the effort. [place] lifts, holds or supports trunk or limbs, but provides less than half the effort. 2-Substantial/Maximal Assistance-helper does MORE THAN HALF the effort. [place] lifts or holds trunk or limbs and provides more than half the effort. 7-Cpwtabstx-ochzfp does ALL the effort. Patient does none of the effort to complete the activity. Or, the assistance of 2 or more helpers is required for the patient to complete the activity. If activity was not attempted, code reason: 7-Patient Refused. 9-Not Applicable-not attempted and the patient did not perform the activity before the current illness, exacerbation or injury. 10-Not Attempted due to Environmental Limitations-(lack of equipment, weather restraints, etc.). 88-Not Attempted due to Medical Conditions or Safety Concerns. On/Off Footwear: 6 OT Short Term Goals Short Term Goals Lower body dressin Putting on/taking off footwear: 5 OT Railcar Mechanic Goals Railcar Mechanic Goals Time Frame: Sep 10, 2020 Eating (QC): 6 Oral Hygiene (QC): 6 Toileting Hygiene (QC): 6 Shower/Bathe Self (QC): 6 Upper Body Dressing (QC): 6 Lower Body Dressing (QC): 6 On/Off Footwear (QC): 6 1=Demonstrate adherence to instructed precautions during ADL tasks. 2=Patient will verbalize/demonstrate understanding of assistive devices/modifi cations for ADL. 3=Patient will improve strength/tolerance for activity to enable patient to perform ADL's. OT Education/Plan Problem List/Assessment Assessment: Decreased Activ Tolerance Discharge Recommendations Plan/Recommendations: Continue POC Treatment Plan/Plan of Care Patient would benefit from OT for education, treatment and training to promote independence in ADL's, mobility, safety and/or upper extremity function for ADL's. Plan of Care: ADL Retraining, Functional Mobility, UE Funct Exercise/Act Treatment Duration: Sep 10, 2020 Frequency: 5 times per week Estimated Hrs Per Day: .25 hour per day Agreement: Yes Rehab Potential: Fair Time/GCodes Start Time: 11:30 Stop Time: 11:45 Total Time Billed (hr/min): 15 Billed Treatment Time 1 visit-FA 1 (15 min) KAREN SWAN Sep 01, 2020 13:21
--- NOTE | 2020-09-01 14:01 | NUR ---
DISCHARGE PLAN: Patient is dismissing to home today with home health care. He has elected [facility] out of [facility] for his home health care provider. Referral faxed to them awaiting their determination. Patient will also need new medical equipment of oxygen. He has selected [facility] out of [place], [place] for his new oxygen need. Referral faxed to them and I have contacted them via phone to deliver portable oxygen to the hospital for transport home. Grand Daughter is expected by the patient to be here around 4 p.m. to transport him home. I let him know that I am hopeful that his oxygen will be here by then but that I couldn't guarantee that. His Grand Daughter will wait for o2 to be delivered if this is the case. Denies any further needs or requests at this time. Addendum: 09/01/20 at 1554 by LILIA HASSAN RN Both [facility] and [facility] have accepted the patient for service. I spoke with [employer] at approximately 1500 et they were on their way to deliver oxygen. I called and updated the community service aide and then the nurse called me back and I updated her as well.
--- NOTE | 2020-09-01 17:10 | NUR ---
Spoke with [facility] to see when the oxygen would be delivered so that the patient can be discharged. [facility] stated that they are delivering at the home now. They will be contacting Sandra casey to see when they will be coming with the oxygen to the hospital and contacting me shortly.
[2020-09-01 18:45] VITALS: BP 111/59
--- NOTE | 2020-09-01 18:46 | NUR ---
MARCY GUERRA JR demonstrates understanding of discharge instructions and accurately returns instructions upon questioning. Copy of Post-Discharge Instructions and Medication Discharge Instructions given to patient. MARCY GUERRA JR is able to manage continuing needs after discharge. Patients belongings returned to patient. Skin dry and intact; no breakdown noted. Patient discharged from [facility] on 09/01/2020 at 1840. MARCY GUERRA JR left floor via wheelchair, accompanied by staff. [facility] delivered oxygen 1825.
--- NOTE | 2020-09-02 14:36 | Therapy Team Discharge Summary ---
Therapy Discharge Summary Discharge Recommendations Date of Discharge Sep 01, 2020 at 18:40 Occupational Therapy Pt admits with ARF due to COVID 19. Upon eval, pt requires SBA for showering/ LB dressing/ toilet hygiene and pt requires min A for footwear. Pt requires increased cues for breath support and 02 decreases to high 80's. Pt and OT work towards higher fx IND and increase of ADLs for safe return home through ADL training, energy conservation, breath support/ management, functional tasks, ther ex, and safety. Pt d/c's home with with an increase of footwear to SBA and SBA with all other ADL tasks. Pt d/c OT at this time. Decreased Activ Tolerance PT Qm Consultant Goals Qm Consultant Goals PT Qm Consultant Goals Time Frame: Sep 03, 2020 Roll Left to Right (QC): 6 Sit to Lying (QC): 6 Lying-Sitting on Side/Bed(QC): 6 Sit to Stand (QC): 6 Chair/Xya-if-Zxwgo Xfer(QC): 6 Car Transfer (QC): 9 Does the Patient Walk: Yes Walk 10 feet (QC): 6 Walk 10ft-Uneven Surface(QC): 9 Walk 50ft with 2 Turns (QC): 6 Walk 150 ft (QC): 6 Wheel 50 feet with 2 turns (QC: 9 1 Step (curb) (QC): 9 4 Steps (QC): 9 12 Steps (QC): 9 Picking up an Object (QC): 6 OT Qm Consultant Goals Snf Goals Time Frame: Sep 10, 2020 Eating (QC): 6 Oral Hygiene (QC): 6 Shower/Bathe Self (QC): 6 Upper Body Dressing (QC): 6 Lower Body Dressing (QC): 6 On/Off Footwear (QC): 6 Toileting Hygiene (QC): 6 Toilet/Commode Transfer (QC): 6 1=Demonstrate adherence to instructed precautions during ADL tasks. 2=Patient will verbalize/demonstrate understanding of assistive devices/modifications for ADL. 3=Patient will improve strength/tolerance for activity to enable patient to perform ADL's. JOSE C PARSON OTR Sep 02, 2020 14:36
== END 2020-09-01 18:40 | disposition home health service (06) | DRG 177 ==
LOC: 4TH 16:08
PROVIDERS: ADMIT Internal Medicine; ATTEND Internal Medicine
DX: U07.1 COVID-19 (principal); J96.00 Acute respiratory failure, unspecified whether with hypoxia or hypercapnia; J12.89 Other viral pneumonia; R53.81 Other malaise; R73.03 Prediabetes; I10 Essential (primary) hypertension; N40.0 Benign prostatic hyperplasia without lower urinary tract symptoms; F32.9 Major depressive disorder, single episode, unspecified; F41.9 Anxiety disorder, unspecified
CPT/HCPCS: 36415; 82962; 85379; 94640; 94760; 94761

== ENCOUNTER → 2020-12-15 | Outpatient (CLI) | payer MEDICARE, OTHER ==
[~2020-12-15] MED LIST changes: +CATHETER FLUSH 10 ML SYR IV PRN; +HOLD METFORMIN - RECEIVED CONTRAST 20 ML VIAL IV SCH; +IOHEXOL 350 MG/ML 100 ML (OMNIPAQUE 350) VIAL IV ONE; +NS 100 ML (IVPB) BAG IV ONE
[2020-12-15 10:25] LABS: BUN/CREATININE RATIO 12; CREATININE SERUM 0.85 MG/DL (0.60-1.30); GFR ESTIMATED > 60
--- NOTE | 2020-12-15 11:08 | Diagnostic Imaging Report ---
PROCEDURE: CT angiography of the chest with contrast. TECHNIQUE: Multiple contiguous axial images were obtained through the chest after uneventful bolus administration of intravenous contrast. 3D reconstructed CTA MIP acquisitions were also performed. Auto Exposure Controls were utilized during the CT exam to meet ALARA standards for radiation dose reduction. INDICATION: Enlarged aorta. COMPARISON: No prior CT studies available for comparison. FINDINGS: The thoracic aorta is somewhat tortuous but no significant dilatation is seen. The ascending thoracic aorta is 3.7 cm in AP diameter. Descending thoracic aorta is 3.4 cm in AP diameter. There is no dissection. No pericardial or pleural fluid is identified. No axillary lymphadenopathy is seen. No mediastinal or hilar lymphadenopathy is detected. There is some scarring in the lingula and right lower lobe. There is a circumscribed nodule in the medial aspect of the right lower lobe, image 101 series 2, measuring 15 mm in diameter. No other parenchymal masses are seen. Upper abdomen is unremarkable. IMPRESSION: 1. No evidence of thoracic aortic aneurysm or dissection. There is some tortuosity of the thoracic aorta. 2. Bibasilar scarring or atelectasis. 3. 15 mm circumscribed nodule in the right lower lobe. This has fairly benign features but close follow-up with repeat CT chest in three to six months could be performed. Consideration could be given to performance of a PET scan as an alternative. Dictated by: Dictated on workstation # [id number]
== END ==
LOC: RAD 09:48
PROVIDERS: ATTEND Family Medicine
DX: Z09 Encounter for follow-up examination after completed treatment for conditions other than malignant neoplasm (principal); I77.89 Other specified disorders of arteries and arterioles; J98.11 Atelectasis; R91.1 Solitary pulmonary nodule
CPT/HCPCS: 36415; 71275; 82565; 84520

== ENCOUNTER → 2021-05-22 | Outpatient (CLI) | payer MEDICARE, OTHER ==
[~2021-05-22] MED LIST changes: -CATHETER FLUSH 10 ML SYR IV PRN; -HOLD METFORMIN - RECEIVED CONTRAST 20 ML VIAL IV SCH; -IOHEXOL 350 MG/ML 100 ML (OMNIPAQUE 350) VIAL IV ONE; -NS 100 ML (IVPB) BAG IV ONE
--- NOTE | 2021-05-22 12:47 | Diagnostic Imaging Report ---
PROCEDURE: CT chest without contrast. TECHNIQUE: Multiple contiguous axial images were obtained through the chest without the use of intravenous contrast. Auto Exposure Controls were utilized during the CT exam to meet ALARA standards for radiation dose reduction. INDICATION: Shortness of breath, abnormal chest x-ray. COMPARISON: 12/15/2020 FINDINGS: Several calcified mediastinal and hilar lymph nodes are present. No pathologically enlarged lymph nodes within the chest. Chronic elevation of the left hemidiaphragm, though this does appear worsened since the prior examination with associated rightward shift of the mediastinum. Significant vascular calcifications within the coronary arteries. No aneurysmal dilatation of the thoracic aorta. The heart is within normal limits in size. No pericardial effusion. No pleural effusion. No pneumothorax. The trachea is patent. Mild background emphysematous changes. Calcified granuloma within the left lower lobe. Mild bibasilar regions of scarring and/or atelectasis. 1.5 cm ovoid circumscribed nodule is noted within the right lower lobe, unchanged from the prior examination, series 3, image 125. No new suspicious pulmonary nodule or mass. Cholecystectomy with suggestion of stones within the residual cystic duct, similar to the prior examination. The visualized upper abdomen is otherwise unremarkable. Minimal reverse S-shaped curvature of the spine with scattered osseous degenerative changes without acute osseous abnormality. IMPRESSION: Increasing significant elevation of the left hemidiaphragm with associated rightward shift of the mediastinum. Findings could relate to diaphragmatic paralysis. Recommend clinical correlation. Fluoroscopic Sniff exam could be performed for further evaluation as clinically indicated. Stable 1.5 cm solid right lower lobe pulmonary nodule, unchanged from the prior exam. Follow-up CT of the chest is recommended in one year to ensure stability of this indeterminate nodule. Evidence of chronic granulomatous disease. Cholecystectomy with residual gallstones within the cystic duct. Mild background emphysematous changes with mild scattered regions of scarring and/or atelectasis. Additional findings as above. Dictated by: Dictated on workstation # [id number]
== END ==
LOC: RAD FS 10:59
PROVIDERS: ATTEND Nurse Practitioner Family
DX: J43.9 Emphysema, unspecified (principal); R91.1 Solitary pulmonary nodule; D71 Functional disorders of polymorphonuclear neutrophils; K80.20 Calculus of gallbladder without cholecystitis without obstruction; Z90.49 Acquired absence of other specified parts of digestive tract
CPT/HCPCS: 71250

== ENCOUNTER → 2021-07-17 | Outpatient (CLI) | payer MEDICARE, OTHER ==
[~2021-07-17] MED LIST changes: +CATHETER FLUSH 10 ML SYR IV PRN; +HOLD METFORMIN - RECEIVED CONTRAST 20 ML VIAL IV SCH; +IOHEXOL 350 MG/ML 100 ML (OMNIPAQUE 350) VIAL IV ONE; +NS 100 ML (IVPB) BAG IV ONE
[2021-07-17 09:16] LABS: POTASSIUM 4.4 MMOL/L (3.6-5.0)
[2021-07-17 09:17] LABS: ALBUMIN 4.2 GM/DL (3.2-4.5); BILIRUBIN,TOTAL 0.7 MG/DL (0.1-1.0); CALCIUM 8.6 MG/DL (8.5-10.1); CREATININE SERUM 0.88 MG/DL (0.60-1.30); TOTAL PROTEIN 6.4 GM/DL (6.4-8.2)
--- NOTE | 2021-07-17 10:28 | Diagnostic Imaging Report ---
EXAMINATION: CT angiography of the chest. TECHNIQUE: Contrast enhanced thin section helical images were obtained through the chest with intravenous contrast timed for the optimal opacification of the arterial structures per CTA protocol. Post-processing, reconstructions and interpretation of angiographic images of the vessels was performed. 3D MIP reconstructions were performed and reviewed. All CT scans use one or more of the following dose optimizing techniques: automated exposure control, MA and/or KvP adjustment based on a patient size and exam type, or iterative reconstruction. HISTORY: Aortic aneurysm COMPARISON: 12/15/2020 FINDINGS: . The aortic root measures 3.5 x 3.7 x 3.3 cm. From commissure to cusp, the sinotubular junction measures 2.7 cm. The max ascending aorta is 3.7 x 3.3 cm. The arch and descending aorta are normal in caliber There is no edema or pneumonia. No pleural effusion. No pneumothorax. There is a stable 15 mm nodule in the right lower lobe with internal fat attenuation Left hemidiaphragm is elevated and there is mild atelectasis in the bases There is no axillary or supraclavicular lymphadenopathy. There is no mediastinal lymphadenopathy. Heart size is normal. There are moderate coronary artery calcifications. No pericardial effusion. Limited views of the upper abdomen show the gallbladder to be absent but a small stone is present in the cystic duct remnant. There are no suspicious osseus lesions. IMPRESSION: 1. Normal caliber aorta without aneurysm. 2. Stable 15 mm right lower lobe nodule with a focus of internal fat attenuation most suggestive of a hamartoma Dictated by: Dictated on workstation # [id number]
== END ==
LOC: RAD FS 08:11
PROVIDERS: ATTEND Family Medicine
DX: I77.89 Other specified disorders of arteries and arterioles (principal); R91.1 Solitary pulmonary nodule
CPT/HCPCS: 36415; 71275; 80053

== ENCOUNTER 2021-10-12 14:02 | Emergency (ER) | payer MEDICARE, OTHER ==
[~2021-10-12] VITALS: Ht 180.3 cm; Wt 113.4 kg
[~2021-10-12 14:02] MED LIST changes: -CATHETER FLUSH 10 ML SYR IV PRN; -HOLD METFORMIN - RECEIVED CONTRAST 20 ML VIAL IV SCH; -IOHEXOL 350 MG/ML 100 ML (OMNIPAQUE 350) VIAL IV ONE; -NS 100 ML (IVPB) BAG IV ONE
[2021-10-12 15:22] LABS: BASOPHILS # (AUTO) 0.1 10^3/uL (0.0-0.1); BASOPHILS % (AUTO) 0 % (0-10); EOSINOPHILS # (AUTO) 0.2 10^3/uL (0.0-0.3); EOSINOPHILS % (AUTO) 2 % (0-10); HEMATOCRIT 52 % (40-54); LYMPHOCYTES # (AUTO) 4.5 X 10^3 (1.0-4.0); LYMPHOCYTES % (AUTO) 38 % (12-44); MEAN CORPUSCULAR HEMOGLOBIN 31 pg (25-34); MEAN CORPUSCULAR HGB CONC 33 g/dL (32-36); MEAN CORPUSCULAR VOLUME 94 fL (80-99); MEAN PLATELET VOLUME 9.2 fL (9.0-12.2); MONOCYTES # (AUTO) 0.9 X 10^3 (0.0-1.0); MONOCYTES % (AUTO) 7 % (0-12); NEUTROPHILS # (AUTO) 6.3 X 10^3 (1.8-7.8); NEUTROPHILS % (AUTO) 53 % (42-75); PLATELET COUNT 285 10^3/uL (130-400); WHITE BLOOD COUNT 11.9 10^3/uL (4.3-11.0)
[2021-10-12] MEDS ORDERED: APIXABAN 5 MG (ELIQUIS) TABLET PO ONE (15:30)
[2021-10-12 15:34] LABS: POTASSIUM 3.7 MMOL/L (3.6-5.0)
[2021-10-12 15:35] LABS: CALCIUM 9.3 MG/DL (8.5-10.1)
--- NOTE | 2021-10-12 15:35 | ED Cardiac General ---
History of Present Illness General Chief Complaint: Cardiac/General Problems Stated Complaint: AFIB Nursing Triage Note: PT AMB TO RM 2 AFTER BEING SENT FROM [facility] FOR NEW ONSET AFIB. STATES THE LAST FEW DAYS HES BEEN HAVING SOA, ANXIOUS, AND HEART RACING. Source: patient, family Exam Limitations: no limitations History of Present Illness Date Seen by Provider: Oct 12, 2021 Time Seen by Provider: 15:00 Initial Comments Patient is an [id number]-old gentleman who presents to the emergency department today with a chief complaint of new onset A. fib, sent from a local clinic. Patient states that he has just not been feeling very well since about of last week. His reports that he had a syncopal episode on Tuesday. She reports that he told her that he was not feeling well when he was coming out of the bathroom and just "went down". He woke up just fine no complaints of injury, no deficits. He has tried to bounce back over the weekend but continues to feel poorly. He is a little bit short of air. He feels like his heart is racing. He has baseline anxiety and has been a little bit more anxious than usual. He denies any chest pain or productive cough. He did have Covid 1 year ago and is subsequently Covid back vaccinated with 2 shots plus a booster. No reported fevers or chills. States that he has some lung injury post Covid. He has to use an inhaler occasionally. He does take medication for high blood pressure. He is on daily baby aspirin. He denies any excessive swelling in his legs, cramping in his calves. No abdominal pain, nausea, vomiting or diarrhea. He complains of polyuria up 5-6 times a night. He is on medication for his prostate. No dysuria is reported. No headache or vision change or speech difficulty. He has never, by his report, been in A. fib before. On my initial evaluation he is going anywhere from 120s to the mid 130s in A. fib with rapid ventricular response. All other review of systems reviewed and negative except as stated. Timing/Duration: 3-4 days Severity: moderate NTG SL UNDERCUTTER OPERATOR: No ASA po UNDERCUTTER OPERATOR: Yes Associated Systoms: Shortness of Air, Syncope (Tuesday (4 days ago)) Allergies and Home Medications Allergies Coded Allergies: No Known Allergies (Unverified Allergy, Unknown, 10/27/20) Patient Home Medication List Home Medication List Reviewed: Yes Acetaminophen (Tylenol Extra Strength) 500 Mg Tablet, 1,000 MG PO Q8H PRN for PAIN-MODERATE (5-7), (Reported) Entered as Reported by: TOLU ROJAS on 08/12/201511 Alprazolam (Alprazolam) 0.5 Mg Tablet, 0.5 MG PO TID PRN for ANXIETY, (Reported) Entered as Reported by: TOLU ROJAS on 08/12/201511 Ascorbic Acid (Vitamin C) 500 Mg Tablet, 500 MG PO DAILY, (Reported) Entered as Reported by: TOLU ROJAS on 08/12/201511 Aspirin (Aspirin EC) 81 Mg Tablet.dr, 81 MG PO DAILY, (Reported) Entered as Reported by: TOLU ROJAS on 08/12/201511 Buspirone HCl (Buspirone HCl) 5 Mg Tablet, 5 MG PO BID, (Reported) Entered as Reported by: TOLU ROJAS on 08/12/201511 Cyanocobalamin (Vitamin B-12) (Vitamin B-12) 1,000 Mcg Tablet, 1,000 MCG PO DAILY, (Reported) Entered as Reported by: TOLU ROJAS on 08/12/201511 Diltiazem HCl (Cardizem Cd) 120 Mg Cap.er.24h, 120 MG PO DAILY Prescribed by: ADRIAN KRAFT on 10/12/21 1649 Ferrous Sulfate (Iron) 325 Mg Tablet, 325 MG PO DAILY, (Reported) Entered as Reported by: TOLU ROJAS on 08/12/201511 Finasteride (Finasteride) 5 Mg Tablet, 5 MG PO DAILY, (Reported) Entered as Reported by: TOLU ROJAS on 08/12/201511 Losartan Potassium (Losartan Potassium) 50 Mg Tablet, 50 MG PO DAILY, (Reported) Entered as Reported by: TOLU ROJAS on 08/12/201511 Paroxetine HCl (Paroxetine HCl) 20 Mg Tablet, 20 MG PO DAILY, (Reported) Entered as Reported by: TOLU ROJAS on 08/12/201511 Rivaroxaban (Xarelto) 20 Mg Tablet, 20 MG PO HS Prescribed by: ADRIAN KRAFT on 10/12/21 1719 Tamsulosin HCl (Flomax) 0.4 Mg Cap, 0.4 MG PO DAILY, (Reported) Entered as Reported by: TOLU ROJAS on 08/12/20 1512 Tiotropium Willard (Spiriva) 1 Inh Aerp, 1 INH IH DAILY, (Reported) Entered as Reported by: TOLU ROJAS on 08/12/20 1512 Discontinued Medications Apixaban (Eliquis) 5 Mg Tablet, 5 MG PO BID Prescribed by: ADRIAN KRAFT on 10/12/21 1649 Review of Systems Review of Systems Constitutional: see HPI EENTM: No Symptoms Reported Respiratory: SOA With Exertion Cardiovascular: Palpitations, Syncope (4 days ago) Gastrointestinal: No Symptoms Reported Genitourinary: No Symptoms Reported Musculoskeletal: no symptoms reported Skin: no symptoms reported Psychiatric/Neurological: No Symptoms Reported All Other Systems Reviewed Negative Unless Noted: Yes Past Xdyldps-Otykna-Mhczbk Hx Patient Social History Tobacco Use?: No Smoking Status: Former Smoker Use of E-Cig and/or Vaping dev: No Substance use?: No Alcohol Use?: No Pt feels they are or have been: No Immunizations Up To Date Influenza Vaccine Up-to-Date: Yes; Up-to-Date First/Initial COVID19 Vaccinat: DECEMBER 2020 Second COVID19 Vaccination Rene: JANUARY 2021 Seasonal Allergies Seasonal Allergies: No Past Medical History Surgery/Hospitalization HX: HX: COVID PNEUMONIA, ANXIETY Surgeries: Yes (colonoscopy, knee arthroplasty (lt), hernia repair, heart cath) Cardiac, Joint Replacement Respiratory: Yes (chronic bronchitis, hx of congestion of nasal sinus) COPD Cardiac: Yes (lipid disorder, dyslipidemia) High Cholesterol, Hypertension Neurological: No Genitourinary: No Gastrointestinal: Yes (benign neoplasm of colon, tubular adenoma of colon, hernia repair) Pancreatitis Musculoskeletal: Yes (osteoarthritis of right knee, wry neck, strain right patellar tendon, DDD) Degenerate Disk Disease Endocrine: No HEENT: No Cancer: Yes (benign neoplaslm of colon, tubular adenoma of colon) Psychosocial: Yes Anxiety Blood Disorders: No Physical Exam Vital Signs Vital Signs - First Documented 10/12/21 14:38 Temp 36.3 Pulse 130 Resp 23 B/P (MAP) 124/72 (89) Pulse Ox 94 O2 Delivery Room Air Capillary Refill : Less Than 3 Seconds Height, Weight, BMI Height: '" Weight: lbs. oz. kg; 34.00 BMI Method: General Appearance: No Apparent Distress, WD/WN HEENT: PERRL/EOMI, Moist Mucous Membranes Neck: Normal Inspection Respiratory: Lungs Clear, Normal Breath Sounds, No Accessory Muscle Use, No Respiratory Distress Cardiovascular: Irregularly Irregular, Tachycardia Gastrointestinal: Normal Bowel Sounds, Non Tender, Soft, Other (Midline ventral hernia soft, reducible) Extremity: Normal Capillary Refill, Normal Inspection, Normal Range of Motion, Non Tender, No Calf Tenderness, No Pedal Edema Neurologic/Psychiatric: Alert, Oriented x3, No Motor/Sensory Deficits, Normal Mood/Affect, clinical nurse specialist II-XII Norm as Tested Skin: Normal Color, Warm/Dry Progress/Results/Core Measures Results/Orders Lab Results Laboratory Tests Test 10/12/21 14:58 Range/Units White Blood Count 11.9 H 4.3-11.0 10^3/uL Red Blood Count 5.54 H 4.30-5.52 10^6/uL Hemoglobin 17.0 13.3-17.7 g/dL Hematocrit 52 40-54 % Mean Corpuscular Volume 94 80-99 fL Mean Corpuscular Hemoglobin 31 25-34 pg Mean Corpuscular Hemoglobin Concent 33 32-36 g/dL Red Cell Distribution Width 12.6 10.0-14.5 % Platelet Count 285 130-400 10^3/uL Mean Platelet Volume 9.2 9.0-12.2 fL Immature Granulocyte % (Auto) 0 % Neutrophils (%) (Auto) 53 42-75 % Lymphocytes (%) (Auto) 38 12-44 % Monocytes (%) (Auto) 7 0-12 % Eosinophils (%) (Auto) 2 0-10 % Basophils (%) (Auto) 0 0-10 % Neutrophils # (Auto) 6.3 1.8-7.8 X 10^3 Lymphocytes # (Auto) 4.5 H 1.0-4.0 X 10^3 Monocytes # (Auto) 0.9 0.0-1.0 X 10^3 Eosinophils # (Auto) 0.2 0.0-0.3 10^3/uL Basophils # (Auto) 0.1 0.0-0.1 10^3/uL Immature Granulocyte # (Auto) 0.0 0.0-0.1 10^3/uL Sodium Level 140 135-145 MMOL/L Potassium Level 3.7 3.6-5.0 MMOL/L Chloride Level 105 98-107 MMOL/L Carbon Dioxide Level 22 21-32 MMOL/L Anion Gap 13 5-14 MMOL/L Blood Urea Nitrogen 9 7-18 MG/DL Creatinine 0.90 0.60-1.30 MG/DL Estimat Glomerular Filtration Rate 81 BUN/Creatinine Ratio 10 Glucose Level 107 H 70-105 MG/DL Calcium Level 9.3 8.5-10.1 MG/DL Troponin I 0.028 <0.028 NG/ML My Orders Orders - ADRIAN KRAFT MD Ed Iv/Invasive Line Start (10/12/21 15:14) Cbc With Automated Diff (10/12/21 15:14) Basic Metabolic Panel (10/12/21 15:14) Ekg Tracing (10/12/21 15:14) Chest 1 View, Ap/Pa Only (10/12/21 15:14) Troponin I [place] (10/12/21 15:14) Diltiazem Injection (Cardizem Injection) (10/12/21 15:30) Apixaban Tablet (Eliquis Tablet) (10/12/21 15:30) Diltiazem Cd 24 Hr Capsule (Cardizem Cd (10/12/21 16:30) Medications Given in ED Current Medications Medications Dose Ordered Sig/Sahra Route Start Time Stop Time Status Last Admin Dose Admin Apixaban 5 mg ONCE ONCE PO 10/12/21 15:30 10/12/21 15:31 DC 10/12/21 15:38 5 MG Diltiazem HCl 20 mg ONCE ONCE IVP 10/12/21 15:30 10/12/21 15:31 DC 10/12/21 15:37 20 MG Vital Signs/I&O 10/12/21 14:38 Temp 36.3 Pulse 130 Resp 23 B/P (MAP) 124/72 (89) Pulse Ox 94 O2 Delivery Room Air Blood Pressure Mean: 89 Progress Progress Note #1: Time: 15:55 Progress Note Notified by RAYRAY Brown that as she was pushing the patient's Cardizem he went i nto an 8 beat run of V. tach. He had no complaints during it it spontaneously resolved. Recheck vitals currently heart rate A. fib at 84, blood pressure 103/75. Chest x-ray pending. Troponin negative chemistry looks good CBC looks good. Will discuss with Dr. Webster. Progress Note #2: Time: 16:10 Progress Note Discussed with Dr Webster, the run of "v tach" - he states was probably aberrancy. Patient was never symptommatic with the run. Patient's BP looks great post cardizem push. He is staying in the 70-80's range on his pulse. will give him a dose of cardizem CD 120 here in the ER and keep him on the eliquis. Dr Webster recommended he call the office tomorrow for a follow up appointment. Patient's labs look great. WIll continue to monitor for another little bit and then send him home. He and his are comfortable with the plan of care. Progress Note #3: Time: 17:12 Progress Note Called by [facility] pharmacy, Eliquis is not on formulary. Insurance would cover Xarelto or Coumadin. Will transition to the Xarelto. 20mg once a day dosing. Progress Note #4: Time: 17:43 Progress Note Rechecked patient after he ambulated back from the bathroom. He was a little bit tachycardic reaching at x1 15-1 20 however after resting in the bed for about 15 minutes his heart rate bounces between 90 and 110. He is completely asymptomatic. I suspect that the Cardizem will take another little while to reach max efficacy. I have told him to go ahead and take a Xarelto tablet tonight. Start the Cardizem by mouth again tomorrow. He is to come back to the emergency room if he has increasing shortness of breath, chest pain, palp itations or any other emergent concerning symptoms. Initial ECG Impression Date: Oct 12, 2021 Initial ECG Impression Time: 14:43 Initial ECG Rate: 110 Initial ECG Rhythm: A Fib/Flutter Initial ECG Impression: Atrial Fibrillation w/RVR Diagnostic Imaging Diagonstic Imaging: Xray Plain Films/CT/US/NM/MRI: chest Comments [facility] [place], [place] NAME: CHARLIEMARCY JR MED REC#: [id number] PT STATUS: REG ER : 1940 PHYSICIAN: ADRIAN KRAFT MD ADMIT DATE: 10/12/21/ER Draft Date of Exam:10/12/21 CHEST 1 VIEW, AP/PA ONLY INDICATION: Weakness and fatigue, new onset atrial fibrillation. Frontal chest obtained at 3:59 p.m. and compared to 08/19/2020. FINDINGS: There is cardiomegaly. Aorta is tortuous and/or ectatic. There is prominent elevation of the left hemidiaphragm. There is no focal infiltrate or pneumothorax or pleural fluid. The infiltrates seen on 08/19/2020 have resolved. IMPRESSION: Cardiomegaly. There is prominent elevation of the left hemidiaphragm. There is resolution of infiltrates compared to the prior study. There is no acute process in the chest. Dictated on workstation # [id number] Dict: 10/12/21 1611 Trans: 10/12/21 1615 [id number] Interpreted by: JAVI GUNDERSON MD Electronically signed by: Critical Care Note Critical Care Start Time: 15:00 Stop Time: 16:51 Total Time (minutes) 30 minutes critical care time in the evaluation and management of this patient in atrial fibrillation with rapid ventricular response. Time includes initial management and evaluation of the patient's afib with RVR, administration of Cardizem, continuous telemetry, review and interpretation of laboratory studies, discussion with forester silviculture. Review of medical record. Discussion with family and patient. Departure Impression Primary Impression: Atrial fibrillation with rapid ventricular response Disposition: 01 HOME, SELF-CARE Condition: Stable Departure-Patient Inst. Decision time for Depature: 16:39 Referrals: MIR SALMERON MD (PCP/Family) Primary Care Physician Patient Instructions: Atrial Fibrillation Add. Discharge Instructions: Start taking one half of your 0.5 mg Xanax in the evening instead of a whole tablet. You will be on XARELTO (the blood thinner) once a day - take it at night with your evening meal. Tomorrow you will start Cardizem CD 120 mg once daily. This is the medication that will control how fast your heart is beating. Please call Dr. Webster office tomorrow morning for a follow-up appointment this week., contact information is on this paperwork. If you develop a return of symptoms with racing heart, shortness of breath or have chest pain or any other emergent concerning symptoms please come back to the emergency department for reevaluation. Scripts Rivaroxaban (Xarelto) 20 Mg Tablet 20 MG PO HS, #30 TAB Prov: ADRIAN KRAFT MD 10/12/21 Diltiazem HCl (Cardizem Cd) 120 Mg Cap.er.24h 120 MG PO DAILY, #30 CAP Prov: ADRIAN KRAFT MD 10/12/21 ADRIAN KRAFT MD Oct 12, 2021 15:35
[2021-10-12 15:40] LABS: CREATININE SERUM 0.9 MG/DL (0.60-1.30)
--- NOTE | 2021-10-12 16:16 | Diagnostic Imaging Report ---
INDICATION: Weakness and fatigue, new onset atrial fibrillation. Frontal chest obtained at 3:59 p.m. and compared to 08/19/2020. FINDINGS: There is cardiomegaly. Aorta is tortuous and/or ectatic. There is prominent elevation of the left hemidiaphragm. There is no focal infiltrate or pneumothorax or pleural fluid. The infiltrates seen on 08/19/2020 have resolved. IMPRESSION: Cardiomegaly. There is prominent elevation of the left hemidiaphragm. There is resolution of infiltrates compared to the prior study. There is no acute process in the chest. Dictated by: Dictated on workstation # [id number]
[2021-10-12] MEDS ORDERED: dilTIAZem120 MG (CARDIZEM CD) CAP PO STA (16:30)
[2021-10-12] MEDS ORDERED: APIX5TAB PO (16:49)
[2021-10-12] MEDS ORDERED: DILT120C82 PO (16:49)
[2021-10-12] MEDS ORDERED: RIVA20TA PO (17:19)
[2021-10-12 18:04] VITALS: BP 130/76
== END 2021-10-12 18:04 | disposition home or self-care (01) ==
LOC: EDUNIT# 14:02 → ER 14:04
DX: I48.91 Unspecified atrial fibrillation (principal); I10 Essential (primary) hypertension; F41.9 Anxiety disorder, unspecified; J44.9 Chronic obstructive pulmonary disease, unspecified; Z87.891 Personal history of nicotine dependence; Z86.16 Personal history of COVID-19; Z79.01 Long term (current) use of anticoagulants; Z79.51 Long term (current) use of inhaled steroids; Z79.82 Long term (current) use of aspirin; Z79.899 Other long term (current) drug therapy
CPT/HCPCS: 36415; 71045; 80048; 84484; 85025; 93005

== ENCOUNTER → 2021-11-12 | Outpatient (CLI) | payer MEDICARE, OTHER ==
[~2021-11-12] MED LIST changes: +APIX5TAB PO; +CATHETER FLUSH 10 ML SYR IV PRN; +DILT120C82 PO; +REGADENOSON 0.4 MG/5 ML SYR (LEXISCAN) IV ONE; +RIVA20TA PO
[2021-11-12 09:17] VITALS: BP 143/82
--- NOTE | 2021-11-12 11:09 | NUCLEAR STRESS TEST ---
REGADENOSON NUCLEAR STRESS Date of procedure: 11/12/2021. Primary care provider: John Louise MD Admitting physician: Bossman Webster Jr., MD. INDICATION: Paroxysmal atrial fibrillation. BASELINE ELECTROCARDIOGRAM: Sinus rhythm with right bundle branch block. STRESS TEST PROCEDURE: The patient was administered 0.4 mg of intravenous Regadenoson. The resting heart rate was 69 bpm and the peak heart rate was 89 bpm. The resting blood pressure was 143/82 mmHg and the minimum blood pressure was 130/76 mmHg. This represents a normal heart rate and a normal blood pressure response to Regadenoson. The test was stopped due to the protocol. There was no chest discomfort during the test. There were no arrhythmias during the test. There were no significant stress induced electrocardiogram changes. NUCLEAR PROCEDURE: The patient was administered 11 mCi of intravenous technetium 99m Tetrofosmin at rest for the rest images. The patient was subsequently administered 30.3 mCi of intravenous technetium 99m Tetrofosmin at peak stress for the stress images. Following an appropriate wait after each injection, imaging was obtained. The images were subsequently processed and reformatted in the usual views. Gated imaging was obtained. The image quality was adequate but with a moderate amount of gastrointestinal attenuation artifact. CT attenuation correction was used as a adjunct to standard imaging. Both the corrected and uncorrected images were reviewed for interpretation. NUCLEAR RESULTS: There was a small, moderate intensity, fixed apical defect with no evidence of inducible ischemia. There was normal left ventricular chamber size with an end-diastolic volume of 84 mL and an end-systolic volume of 30 mL. There was no evidence of transient ischemic dilatation. The TID ratio was 1.03. There was normal wall motion in all segments with a calculated ejection fraction of 64%. IMPRESSION: 1. Normal heart rate and blood pressure response to regadenoson. 2. There was no chest discomfort, arrhythmias, or electrocardiogram changes during the test. 3. There was a small, moderate intensity, fixed apical defect with no evidence of inducible ischemia. 4. There was normal wall motion in all segments with a calculated ejection fraction of 64%. 5. This is an abnormal result although low risk for future coronary ischemic events. Certain portions of this document may have been dictated utilizing voice recognition technology. Inherent to this technology, typographical and grammatical errors may exist. As much as I am diligent to identify and correct these mistakes, some errors may remain in the document. BOSSMAN WEBSTER JR, MD Nov 12, 2021 11:09
== END ==
LOC: CARD 08:00
PROVIDERS: ATTEND Internal Medicine Cardiovascular Disease
DX: I08.3 Combined rheumatic disorders of mitral, aortic and tricuspid valves (principal); I48.0 Paroxysmal atrial fibrillation
CPT/HCPCS: 78452; 93017; 93306; A9502

== ENCOUNTER 2022-04-01 13:43 | Emergency (ER) | payer MEDICARE, OTHER ==
[~2022-04-01] VITALS: Ht 177 cm; Wt 105.0 kg
[~2022-04-01 13:43] MED LIST changes: -CATHETER FLUSH 10 ML SYR IV PRN; -REGADENOSON 0.4 MG/5 ML SYR (LEXISCAN) IV ONE
[2022-04-01] MEDS ORDERED: dilTIAZem120 MG (CARDIZEM CD) CAP PO STA ×2 (14:00→14:14)
[2022-04-01] MEDS ORDERED: NS (IVPB) 250 ML IV ONE (14:00)
--- NOTE | 2022-04-01 14:05 | ED Cardiac General ---
History of Present Illness General Stated Complaint: SOB; GEN WEAKNESS Source: patient, family Exam Limitations: no limitations History of Present Illness Date Seen by Provider: Apr 01, 2022 Time Seen by Provider: 13:45 Initial Comments 82-year-old male with past medical history of A. fib on blood thinners, hypertension, hyperlipidemia coming in due to feeling "woozy". He says he was walking around [facility], felt lightheaded and short of breath, sat down, felt better. Got up again and felt that way again. He then presented to the ER. This happened roughly about an hour ago. Denies any chest pain, shortness of breath currently, abdominal pain, nausea, vomiting, diarrhea, focal weakness or numbness, headache, vision changes, fever, or any other concerns. Has been eating and drinking slightly less, has not been out in the heat. Has never had a heart attack and does not have any stents in his heart. Denies any history of DVT or PE. Allergies and Home Medications Allergies Coded Allergies: No Known Allergies (Unverified Allergy, Unknown, 08/12/20) Patient Home Medication List Home Medication List Reviewed: Yes Acetaminophen (Tylenol Extra Strength) 500 Mg Tablet, 1,000 MG PO Q8H PRN for PAIN-MODERATE (5-7), (Reported) Entered as Reported by: TOLU ROJAS on 08/12/201511 Alprazolam (Alprazolam) 0.5 Mg Tablet, 0.5 MG PO TID PRN for ANXIETY, (Reported) Entered as Reported by: TOLU ROJAS on 08/12/201511 Ascorbic Acid (Vitamin C) 500 Mg Tablet, 500 MG PO DAILY, (Reported) Entered as Reported by: TOLU ROJAS on 08/12/201511 Aspirin (Aspirin EC) 81 Mg Tablet.dr, 81 MG PO DAILY, (Reported) Entered as Reported by: TOLU ROJAS on 08/12/201511 Buspirone HCl (Buspirone HCl) 5 Mg Tablet, 5 MG PO BID, (Reported) Entered as Reported by: TOLU ROJAS on 08/12/201511 Cyanocobalamin (Vitamin B-12) (Vitamin B-12) 1,000 Mcg Tablet, 1,000 MCG PO DAILY, (Reported) Entered as Reported by: TOLU ROJAS on 08/12/201511 Diltiazem HCl (Cardizem Cd) 120 Mg Cap.er.24h, 120 MG PO DAILY Prescribed by: ADRIAN KRAFT on 10/12/21 1649 Ferrous Sulfate (Iron) 325 Mg Tablet, 325 MG PO DAILY, (Reported) Entered as Reported by: TOLU ROJAS on 08/12/201511 Finasteride (Finasteride) 5 Mg Tablet, 5 MG PO DAILY, (Reported) Entered as Reported by: TOLU ROJAS on 08/12/201511 Losartan Potassium (Losartan Potassium) 50 Mg Tablet, 50 MG PO DAILY, (Reported) Entered as Reported by: TOLU ROJAS on 08/12/201511 Paroxetine HCl (Paroxetine HCl) 20 Mg Tablet, 20 MG PO DAILY, (Reported) Entered as Reported by: TOLU ROJAS on 08/12/201511 Rivaroxaban (Xarelto) 20 Mg Tablet, 20 MG PO HS Prescribed by: ADRIAN KRAFT on 10/12/21 1719 Tamsulosin HCl (Flomax) 0.4 Mg Cap, 0.4 MG PO DAILY, (Reported) Entered as Reported by: TOLU ROJAS on 08/12/201511 Tiotropium [place] (Spiriva) 1 Inh Aerp, 1 INH IH DAILY, (Reported) Entered as Reported by: TOLU ROJAS on 08/12/201511 Review of Systems Review of Systems Constitutional: No fever EENTM: No Blurred Vision Respiratory: Denies Cough; Shortness of Air Cardiovascular: Denies Chest Pain; Lightheadedness Gastrointestinal: No Symptoms Reported Genitourinary: No Symptoms Reported Musculoskeletal: no symptoms reported Skin: no symptoms reported Psychiatric/Neurological: No Symptoms Reported Endocrine: No Symptoms Reported Hematologic/Lymphatic: No Symptoms Reported All Other Systems Reviewed Negative Unless Noted: Yes Past Kwnpuss-Jynrpg-Qlkqrq Hx Patient Social History Tobacco Use?: No Smoking Status: Former Smoker Substance use?: No Alcohol Use?: No Immunizations Up To Date First/Initial COVID19 Vaccinat: DECEMBER 2020 Second COVID19 Vaccination Rene: JANUARY 2021 Seasonal Allergies Seasonal Allergies: No Past Medical History Surgery/Hospitalization HX: HX: COVID PNEUMONIA, ANXIETY Surgeries: Yes (colonoscopy, knee arthroplasty (lt), hernia repair, heart cath) Cardiac, Joint Replacement Respiratory: Yes (chronic bronchitis, hx of congestion of nasal sinus) COPD Cardiac: Yes (lipid disorder, dyslipidemia) High Cholesterol, Hypertension Neurological: No Genitourinary: No Gastrointestinal: Yes (benign neoplasm of colon, tubular adenoma of colon, hernia repair) Pancreatitis Musculoskeletal: Yes (osteoarthritis of right knee, wry neck, strain right patellar tendon, DDD) Degenerate Disk Disease Endocrine: No HEENT: No Cancer: Yes (benign neoplaslm of colon, tubular adenoma of colon) Psychosocial: Yes Anxiety Blood Disorders: No Physical Exam Vital Signs Vital Signs - First Documented 04/01/22 14:27 Temp 36.6 Pulse 89 Resp 22 B/P (MAP) 116/57 (76) Pulse Ox 94 O2 Delivery Room Air Capillary Refill : Height, Weight, BMI Height: '" Weight: lbs. oz. kg; 34.00 BMI Method: General Appearance: No Apparent Distress, WD/WN HEENT: PERRL/EOMI, Normal ENT Inspection, Pharynx Normal Neck: Full Range of Motion, Normal Inspection, Non Tender, Supple Respiratory: Chest Non Tender, Lungs Clear, Normal Breath Sounds, No Accessory Muscle Use, No Respiratory Distress Cardiovascular: No Murmur, Normal Peripheral Pulses, Irregularly Irregular Gastrointestinal: Normal Bowel Sounds, Non Tender, Soft; No Distended, No Guarding Extremity: Normal Capillary Refill, Normal Inspection, Normal Range of Motion, Non Tender, No Calf Tenderness, No Pedal Edema Neurologic/Psychiatric: Alert, No Motor/Sensory Deficits, Normal Mood/Affect Skin: Normal Color, Warm/Dry Lymphatic: No Adenopathy Progress/Results/Core Measures Results/Orders Lab Results Laboratory Tests Test 04/01/22 14:00 04/01/22 16:29 Range/Units White Blood Count 11.6 H 4.3-11.0 10^3/uL Red Blood Count 4.58 4.30-5.52 10^6/uL Hemoglobin 13.8 13.3-17.7 g/dL Hematocrit 41 40-54 % Mean Corpuscular Volume 90 80-99 fL Mean Corpuscular Hemoglobin 30 25-34 pg Mean Corpuscular Hemoglobin Concent 33 32-36 g/dL Red Cell Distribution Width 14.2 10.0-14.5 % Platelet Count 236 130-400 10^3/uL Mean Platelet Volume 9.4 9.0-12.2 fL Immature Granulocyte % (Auto) 0 % Neutrophils (%) (Auto) 73 42-75 % Lymphocytes (%) (Auto) 18 12-44 % Monocytes (%) (Auto) 7 0-12 % Eosinophils (%) (Auto) 1 0-10 % Basophils (%) (Auto) 1 0-10 % Neutrophils # (Auto) 8.5 H 1.8-7.8 10^3/uL Lymphocytes # (Auto) 2.0 1.0-4.0 10^3/uL Monocytes # (Auto) 0.8 0.0-1.0 10^3/uL Eosinophils # (Auto) 0.2 0.0-0.3 10^3/uL Basophils # (Auto) 0.1 0.0-0.1 10^3/uL Immature Granulocyte # (Auto) 0.0 0.0-0.1 10^3/uL Prothrombin Time 19.5 H 12.2-14.7 SEC INR Comment 1.6 H 0.8-1.4 Activated Partial Thromboplast Time 39 H 24-35 SEC Sodium Level 140 135-145 MMOL/L Potassium Level 3.8 3.6-5.0 MMOL/L Chloride Level 103 98-107 MMOL/L Carbon Dioxide Level 23 21-32 MMOL/L Anion Gap 14 5-14 MMOL/L Blood Urea Nitrogen 12 7-18 MG/DL Creatinine 1.06 0.60-1.30 MG/DL Estimat Glomerular Filtration Rate 69 BUN/Creatinine Ratio 11 Glucose Level 166 H 70-105 MG/DL Calcium Level 8.9 8.5-10.1 MG/DL Corrected Calcium 9.0 8.5-10.1 MG/DL Magnesium Level 1.9 1.6-2.4 MG/DL Total Bilirubin 0.5 0.1-1.0 MG/DL Aspartate Amino Transf (AST/SGOT) 27 5-34 U/L Alanine Aminotransferase (ALT/SGPT) 25 0-55 U/L Alkaline Phosphatase 92 40-136 U/L Troponin I < 0.30 < 0.30 <0.30 NG/ML Pro-B-Type Natriuretic Peptide 1124.0 H <75.0 PG/ML Total Protein 6.3 L 6.4-8.2 GM/DL Albumin 3.9 3.2-4.5 GM/DL My Orders Orders - BRANDAN DÍAZ MD Cbc With Automated Diff (04/01/22 14:00) Magnesium (04/01/22 14:00) Chest 1 View Ap/Pa Only (04/01/22 14:00) Ekg Tracing (04/01/22 14:00) Comprehensive Metabolic Panel (04/01/22 14:00) Protime With Inr (04/01/22 14:00) Partial Thromboplastin Time (04/01/22 14:00) O2 (04/01/22 14:00) Monitor-Rhythm Ecg Trace Only (04/01/22 14:00) Ed Iv/Invasive Line Start (04/01/22 14:00) Troponin I Fs (04/01/22 14:00) Probnp Fs (04/01/22 14:00) Ns (Ivpb) (Sodium Chloride 0.9%) (04/01/22 14:00) Aspirin Chewable Tablet (Baby Aspirin Ch (04/01/22 14:15) Diltiazem Cd 24 Hr Capsule (Cardizem Cd (04/01/22 14:14) Troponin I Fs (04/01/22 16:00) Medications Given in ED Current Medications Medications Dose Ordered Sig/Sahra Route Start Time Stop Time Status Last Admin Dose Admin Aspirin 243 mg ONCE ONCE PO 04/01/22 14:15 04/01/22 14:16 DC 04/01/22 14:09 243 MG Sodium Chloride 250 ml @ 999 mls/hr Q16M ONCE IV 04/01/22 14:00 04/01/22 14:15 DC 04/01/22 14:15 999 MLS/HR Vital Signs/I&O 04/01/22 14:27 Temp 36.6 Pulse 89 Resp 22 B/P (MAP) 116/57 (76) Pulse Ox 94 O2 Delivery Room Air Progress Progress Note : Progress Note 82-year-old male presenting lightheaded. ABCs were intact and vitals were stable on presentation. He is in chronic A. fib, and he had moments of going into RVR. Give him an extra dose of diltiazem followed by gentle bolus 250 cc of IV fluids. Basic labs obtained including cardiac biomarkers. Troponin negative x2. Patient has been asymptomatic from arrival to the ER and we monitored him for 3 hours and he continues to not have any symptoms. Heart rate improved and he is back to baseline. I ambulated the patient and he is no longer having symptoms. I recommended follow-up closely with cardiology which she is agreeable to. He was then discharged home in stable condition with strict return precautions. Initial ECG Impression Date: Apr 01, 2022 Initial ECG Impression Time: 13:56 Initial ECG Rate: 95 Initial ECG Rhythm: A Fib/Flutter Comment Wide QRS with a right bundle branch block, no significant ST changes or T wave abnormalities, appears similar to prior EKG Diagnostic Imaging Diagonstic Imaging: Xray (chest) Comments [facility]. [place], [place] NAME: MARCY GUERRA JR [facility] REC#: [id number] PT STATUS: REG ER : 1940 PHYSICIAN: BRANDAN DÍAZ MD ADMIT DATE: 04/01/22/ER FS Draft Date of Exam:04/01/22 CHEST 1 VIEW AP/PA ONLY INDICATION: Chest pain COMPARISON: 10/12/2021 FINDINGS: Single frontal view of the chest demonstrates moderate cardiomegaly. Pulmonary vasculature however is within normal limits. The lungs are well aerated and clear. No large pleural effusion or pneumothorax is seen. The visualized osseous structures show no acute abnormalities. IMPRESSION: 1. Moderate cardiomegaly, but no evidence of failure or focal infiltrate. Dictated on workstation # [id number] Dict: 04/01/22 1423 Trans: 04/01/22 1425 [facility] [id number] Interpreted by: TERE HOOKS MD Electronically signed by: Departure Impression Primary Impression: Atrial fibrillation with RVR Disposition: 01 HOME, SELF-CARE Condition: Improved Departure-Patient Inst. Decision time for Depature: 17:03 Referrals: MIR SALMERON MD (PCP) Primary Care Physician Patient Instructions: Atrial Fibrillation and Atrial Flutter ED Add. Discharge Instructions: I believe your atrial fibrillation was a little bit out of control earlier and your heart rate was too fast. We gave you an extra medicine to help slow down. If you begin feeling worse, or have any concerns either call your doctor or come back to the ER. I recommend closer follow-up with cardiology. BRANDAN DÍAZ MD Apr 01, 2022 14:05
[2022-04-01 14:12] LABS: BASOPHILS # (AUTO) 0.1 10^3/uL (0.0-0.1); BASOPHILS % (AUTO) 1 % (0-10); EOSINOPHILS # (AUTO) 0.2 10^3/uL (0.0-0.3); EOSINOPHILS % (AUTO) 1 % (0-10); HEMATOCRIT 41 % (40-54); HEMOGLOBIN 13.8 g/dL (13.3-17.7); LYMPHOCYTES % (AUTO) 18 % (12-44); MEAN CORPUSCULAR HEMOGLOBIN 30 pg (25-34); MEAN CORPUSCULAR HGB CONC 33 g/dL (32-36); MEAN CORPUSCULAR VOLUME 90 fL (80-99); MEAN PLATELET VOLUME 9.4 fL (9.0-12.2); MONOCYTES # (AUTO) 0.8 10^3/uL (0.0-1.0); MONOCYTES % (AUTO) 7 % (0-12); NEUTROPHILS # (AUTO) 8.5 10^3/uL (1.8-7.8); NEUTROPHILS % (AUTO) 73 % (42-75); PLATELET COUNT 236 10^3/uL (130-400); WHITE BLOOD COUNT 11.6 10^3/uL (4.3-11.0)
[2022-04-01] MEDS ORDERED: ASPIRIN 81 MG CHEW (CHILDREN'S ASA) PO ONE (14:15)
--- NOTE | 2022-04-01 14:25 | Diagnostic Imaging Report ---
INDICATION: Chest pain COMPARISON: 10/12/2021 FINDINGS: Single frontal view of the chest demonstrates moderate cardiomegaly. Pulmonary vasculature however is within normal limits. The lungs are well aerated and clear. No large pleural effusion or pneumothorax is seen. The visualized osseous structures show no acute abnormalities. IMPRESSION: 1. Moderate cardiomegaly, but no evidence of failure or focal infiltrate. Dictated by: Dictated on workstation # [id number]
[2022-04-01 14:26] LABS: INR 1.6 (0.8-1.4); PROTHROMBIN TIME PATIENT 19.5 SEC (12.2-14.7)
[2022-04-01 14:48] LABS: BILIRUBIN,TOTAL 0.5 MG/DL (0.1-1.0); CALCIUM 8.9 MG/DL (8.5-10.1); CREATININE SERUM 1.06 MG/DL (0.60-1.30); MAGNESIUM 1.9 MG/DL (1.6-2.4); POTASSIUM 3.8 MMOL/L (3.6-5.0)
[2022-04-01 14:49] LABS: ALBUMIN 3.9 GM/DL (3.2-4.5); TOTAL PROTEIN 6.3 GM/DL (6.4-8.2)
[2022-04-01 17:28] VITALS: BP 120/67
== END 2022-04-01 16:35 | disposition home or self-care (01) ==
LOC: EDUNIT# 13:43 → ER FS 13:44
DX: I48.20 Chronic atrial fibrillation, unspecified (principal); I45.10 Unspecified right bundle-branch block; Z86.16 Personal history of COVID-19; Z87.891 Personal history of nicotine dependence; Z79.01 Long term (current) use of anticoagulants
CPT/HCPCS: 36415; 71045; 80053; 83735; 83880; 84484; 85025; 85610; 85730; 93005

== ENCOUNTER 2022-04-05 13:30 | Outpatient (RCR) | payer MEDICARE ==
--- NOTE | 2022-04-26 11:50 | 30 Day Event Recorder ---
30-DAY EVENT RECORDER 14-DAY ZIO XT EVENT RECORDER DATE OF PROCEDURE: 04/05/2022-04/19/2022. INDICATION: Paroxysmal atrial fibrillation. PROCEDURE: A 14-day ZIO XT event recorder was obtained for a total of 13 days and 18 hours. There were 27 triggered events and 11 patient triggered events. The study quality is adequate. RESULTS: 1. Baseline atrial fibrillation with an average heart rate of 112 bpm, ranging from 64-177 bpm with frequent, isolated premature ventricular complexes versus aberrancy representing 2.6% of the total recording time as well as rare ventricular couplets and triplets and one 4 beat run of wide-complex tachycardia at a heart rate of 136 bpm. 2. There were no pauses exceeding 3 seconds in duration. 3. There were 11 patient triggered events that correlated to atrial fibrillation and during some of the events there were isolated premature ventricular complexes versus aberrancy. IMPRESSION: 1. This is a 14-day ZIO XT event recorder. 2. Baseline atrial fibrillation with an average heart rate of 112 bpm, ranging from 64-177 bpm with frequent, isolated premature ventricular complexes versus aberrancy representing 2.6% of the total recording time as well as rare ventricular couplets and triplets and one 4 beat run of wide-complex tachycardia at a heart rate of 136 bpm. 3. There were 11 patient triggered events that correlated to atrial fibrillation and during some of the events there were isolated premature ventricular complexes versus aberrancy. Certain portions of this document may have been dictated utilizing voice recognition technology. Inherent to this technology, typographical and grammatical errors may exist. As much as I am diligent to identify and correct these mistakes, some errors may remain in the document. BEKA ARORA JR, MD Apr 26, 2022 11:50
== END 2022-04-15 | disposition home or self-care (01) ==
LOC: CARD 13:30
PROVIDERS: ATTEND Internal Medicine Cardiovascular Disease
DX: I48.0 Paroxysmal atrial fibrillation (principal)
CPT/HCPCS: 93246

== ENCOUNTER → 2022-05-12 | Outpatient (CLI) | payer MEDICARE ==
--- NOTE | 2022-05-12 16:42 | Diagnostic Imaging Report ---
INDICATION: CHF. TECHNIQUE/COMPARISON: PA and lateral films of the chest were obtained at 2 PM on 04/01/2022. FINDINGS: There is cardiomegaly. The aorta is tortuous. There is no focal infiltrate, pneumothorax, or pleural fluid. IMPRESSION: Cardiomegaly with a tortuous aorta. No acute process in the chest. Dictated by: Dictated on workstation # [id number]
== END ==
LOC: RAD FS 13:46
PROVIDERS: ATTEND Internal Medicine Cardiovascular Disease
DX: I50.32 Chronic diastolic (congestive) heart failure (principal); I51.7 Cardiomegaly; Q25.46 Tortuous aortic arch
CPT/HCPCS: 71046

== ENCOUNTER 2022-09-11 16:24 | Emergency (ER) | payer MEDICARE ==
[~2022-09-11] VITALS: Ht 180.3 cm; Wt 106.5 kg
--- NOTE | 2022-09-11 16:47 | ED Trauma-Multisystem ---
General Chief Complaint: Trauma-Non Activation Stated Complaint: FALL, HEAD INJ Source of Information: Patient Exam Limitations: No Limitations History of Present Illness Date Seen by Provider: Sep 11, 2022 Time Seen by Provider: 16:00 Initial Comments Patient is a 82-year-old male currently on Xarelto for chronic A. fib who presents with facial lacerations head injury after mechanical fall from standing. Patient fell from standing position striking his face, he denies loss of consciousness, headache and neck pain. Patient does have a 3 cm full- thickness closed laceration with over the nasal bridge with septal deformity and stellate laceration of the lower lip through the muscularis. He has contusions to his left hand and right knee. He denies loss of consciousness but briefly felt dazed. No other injury or pain complaints. Date of last tetanus is unknown.. Occurred: Just Prior to Arrival Severity: Moderate Pain/Injury Location: Other Method of Injury: Other Modifying Factors: Other Associated Symptoms (Fall): Other Allergies and Home Medications Allergies Coded Allergies: No Known Allergies (Unverified Allergy, Unknown, 08/12/20) morphine (Verified Adverse Reaction, Unknown, hallucinations, 09/11/22) Patient Home Medication List Home Medication List Reviewed: Yes Acetaminophen (Tylenol Extra Strength) 500 Mg Tablet, 1,000 MG PO Q8H PRN for P AIN-MODERATE (5-7), (Reported) Entered as Reported by: TOLU ROJAS on 08/12/201511 Alprazolam (Alprazolam) 0.5 Mg Tablet, 0.5 MG PO TID PRN for ANXIETY, (Reported) Entered as Reported by: TOLU ROJAS on 08/12/201511 Ascorbic Acid (Vitamin C) 500 Mg Tablet, 500 MG PO DAILY, (Reported) Entered as Reported by: TOLU ROJAS on 08/12/201511 Aspirin (Aspirin EC) 81 Mg Tablet.dr, 81 MG PO DAILY, (Reported) Entered as Reported by: TOLU ROJAS on 08/12/201511 Buspirone HCl (Buspirone HCl) 5 Mg Tablet, 5 MG PO BID, (Reported) Entered as Reported by: TOLU ROJAS on 08/12/201511 Cyanocobalamin (Vitamin B-12) (Vitamin B-12) 1,000 Mcg Tablet, 1,000 MCG PO DAILY, (Reported) Entered as Reported by: TOLU ROJAS on 08/12/201511 Diltiazem HCl (Cardizem Cd) 120 Mg Cap.er.24h, 120 MG PO DAILY Prescribed by: ADRIAN KRAFT on 10/12/21 1649 Ferrous Sulfate (Iron) 325 Mg Tablet, 325 MG PO DAILY, (Reported) Entered as Reported by: TOLU ROJAS on 08/12/201511 Finasteride (Finasteride) 5 Mg Tablet, 5 MG PO DAILY, (Reported) Entered as Reported by: TOLU ROJAS on 08/12/201511 Losartan Potassium (Losartan Potassium) 50 Mg Tablet, 50 MG PO DAILY, (Reported) Entered as Reported by: TOLU ROJAS on 08/12/201511 Paroxetine HCl (Paroxetine HCl) 20 Mg Tablet, 20 MG PO DAILY, (Reported) Entered as Reported by: TOLU ROJAS on 08/12/201511 Rivaroxaban (Xarelto) 20 Mg Tablet, 20 MG PO HS Prescribed by: ADRIAN KRAFT on 10/12/21 1719 Tamsulosin HCl (Flomax) 0.4 Mg Cap, 0.4 MG PO DAILY, (Reported) Entered as Reported by: TOLU ROJAS on 08/12/201511 Tiotropium [place] (Spiriva) 1 Inh Aerp, 1 INH IH DAILY, (Reported) Entered as Reported by: TOLU ROJAS on 08/12/201511 Review of Systems Review of Systems Constitutional: see HPI Eyes: See HPI Ears: See HPI Nose: See HPI Mouth: See HPI Throat: See HPI Respiratory: see HPI Cardiovascular: See HPI Gastrointestinal: see HPI Genitourinary: see HPI Musculoskeletal: see HPI Skin: see HPI Psychiatric/Neurological: See HPI All Other Systems Reviewed Negative Unless Noted: No Past Eijbkcz-Gbshfa-Lhnszj Hx Patient Social History Tobacco Use?: No Immunizations Up To Date First/Initial COVID19 Vaccinat: DECEMBER 2020 Second COVID19 Vaccination Rene: JANUARY 2021 Seasonal Allergies Seasonal Allergies: No Past Medical History Surgery/Hospitalization HX: HX: COVID PNEUMONIA, ANXIETY Surgeries: Yes (colonoscopy, knee arthroplasty (lt), hernia repair, heart cath) Cardiac, Joint Replacement Respiratory: Yes (chronic bronchitis, hx of congestion of nasal sinus) COPD Cardiac: Yes (lipid disorder, dyslipidemia) High Cholesterol, Hypertension Neurological: No Genitourinary: No Gastrointestinal: Yes (benign neoplasm of colon, tubular adenoma of colon, hernia repair) Pancreatitis Musculoskeletal: Yes (osteoarthritis of right knee, wry neck, strain right patellar tendon, DDD) Degenerate Disk Disease Endocrine: No HEENT: No Cancer: Yes (benign neoplaslm of colon, tubular adenoma of colon) Psychosocial: Yes Anxiety Blood Disorders: No Physical Exam Vital Signs Vital Signs - First Documented 09/11/22 16:45 Temp 36.2 Pulse 84 Resp 20 B/P (MAP) 133/82 (99) Pulse Ox 95 O2 Delivery Room Air Height, Weight, BMI Height: '" Weight: lbs. oz. kg; 33.00 BMI Method: General Appearance: No Apparent Distress, WD/WN, Anxious Head: Active Bleeding, Lacerations, Other (L periorbital contusion, full- thickness nasal bridge laceration with nasal septal deformity, left forehead contusion) Eyes: Bilateral Eye Normal Inspection, Bilateral Eye EOMI Ears, Nose, Throat: Other (Continues left lower lip laceration with stellate laceration through the muscularis layer) Neck: Full Range of Motion, Normal Inspection, Non Tender, Supple Cardiovascular: Regular Rate, Rhythm, No Edema Respiratory: Lungs Clear Extremity: Normal Capillary Refill, Normal Inspection, Other (Left hand contusion, right knee contusion. No gross deformities. No hip, tenderness swelling or deformity) Holley Coma Score Best Verbal Response ([place]): (5) Oriented Best Motor Response ([place]): (6) Obeys Commands Focused Exam Sepsis Stage: Ruled Out Procedures/Interventions Wound Location: Face Other Wound Location Nasal bridge, left lower lip laceration repair procedure note. Patient is lacerations were injected with 4 mL of 1% lidocaine without epinephrine. Nasal laceration repaired with 9, running interlocked, 50 Ethilon running sutures. Lip laceration closed with 5, 5-0. Wound Explored: clean Anesthesia: 1% Lidocaine Wound Debrided: minimal Suture: Ethlion, Vicryl Suture Size: 5-0 Number of Sutures: 14 Layer Closure?: 1 Sterile Dressing Applied?: Yes Progress/Results/Core Measures Results/Orders My Orders Orders - LISANDRA MANUEL DO Hand 3 View Left (09/11/22 17:09) Knee 3 View Right (09/11/22 17:09) Ct Head/Face/Cervical Wo (09/11/22 16:51) Ondansetron Oral Dissolve Tab (Zofran (09/11/22 17:13) Dipht,Pertuss(Acell),Tet Adult (Boostrix (09/11/22 17:15) Hydrocodone/Apap 10/325 Tablet (Lortab 1 (09/11/22 17:45) Oxycodone/Apap 5/325mg Tablet (Percocet (09/11/22 17:45) Lidocaine 1% Inj 20 Ml (Xylocaine 1% Inj (09/11/22 17:45) Protime With Inr (09/11/22 18:32) Partial Thromboplastin Time (09/11/22 18:32) Lorazepam Injection (Ativan Injection) (09/11/22 18:45) Medications Given in ED Current Medications Medications Dose Ordered Sig/Sahra Route Start Time Stop Time Status Last Admin Dose Admin Diphtheria/ Tetanus/Acell Pertussis 0.5 ml ONCE ONCE IM 09/11/22 17:15 09/11/22 17:16 DC 09/11/22 18:15 0.5 ML Lidocaine HCl 20 ml ONCE ONCE INJ 09/11/22 17:45 09/11/22 17:48 DC 09/11/22 17:52 20 ML Oxycodone/ Acetaminophen 2 tab ONCE ONCE PO 09/11/22 17:45 09/11/22 17:48 DC 09/11/22 17:52 2 TAB Vital Signs/I&O 09/11/22 16:45 Temp 36.2 Pulse 84 Resp 20 B/P (MAP) 133/82 (99) Pulse Ox 95 O2 Delivery Room Air Departure Communication (Admissions) CT head/maxillofacial/cspine: Small subarachnoid hemorrhage left frontal lobe, nasal septal fracture, no C-spine injury per X-ray left hand/right knee: No fracture Facial injury with subarachnoid hemorrhage. GCS 15. Laceration repaired, tetanus updated. Patient accepted to [facility] trauma ICU per Dr. Adams 183 Impression Primary Impression: Traumatic brain injury Additional Impressions: Subarachnoid hemorrhage Nasal fracture Nasal laceration Laceration of lower lip Permanent atrial fibrillation Chronic anticoagulation Disposition: XFER SHT-TRM HOSP Condition: Critical Transfer Transfer Reason: Exceeds level of care Method of Transfer: EMS Departure-Patient Inst. Referrals: MIR SALMERON MD (PCP/Family) Primary Care Physician LISANDRA MANUEL DO Sep 11, 2022 16:47
[2022-09-11] MEDS ORDERED: ONDANSETRON 4 MG (ZOFRAN) ORAL DISSOLVE TAB PO STA (17:13)
[2022-09-11] MEDS ORDERED: morphine INJ 10 MG/ML 1ML (SYR OR VIAL) IM STA (17:13)
[2022-09-11] MEDS ORDERED: TETANUS,DIPTH,PERTUSS P/F (BOOSTRIX) 0.5 ML VIAL IM ONE (17:15)
[2022-09-11] MEDS ORDERED: LIDOCAINE 1% INJ 20 ML VIAL INJ ONE (17:45)
[2022-09-11] MEDS ORDERED: oxyCODONE/APAP 5/325MG (PERCOCET 5) TABLET PO ONE (17:45)
--- NOTE | 2022-09-11 17:53 | Diagnostic Imaging Report ---
PROCEDURE: CT head, face and cervical spine without contrast. TECHNIQUE: Multiple contiguous axial images were obtained through the head, neck, and facial bones without the use of intravenous contrast. Sagittal and coronal reformations through the cervical spine and facial bones were also performed. Auto Exposure Controls were utilized during the CT exam to meet ALARA standards for radiation dose reduction. INDICATION: Trauma. Head and neck pain. Facial laceration. Fall on concrete. On blood thinners. COMPARISON: None. FINDINGS: CT HEAD: Small focus of subarachnoid hemorrhage is seen in the right central sulcus. Additional small amount of subarachnoid hemorrhage is seen in the more anterior right frontal lobe. No intraparenchymal hemorrhage. No associated midline shift or mass effect. No large acute territorial ischemia. Decreased attenuation is seen in the periventricular and subcortical white matter. The ventricles and cortical sulci are prominent. The basilar cisterns are patent and unremarkable. The calvarium is intact. CT FACE: Minimally displaced fracture is seen involving the nasal bone on the right. Associated soft tissue edema is seen overlying the nose. The nasal septum is S-shaped with a prominent spur contacting the left inferior turbinate. The mandible, zygomatic arches and pterygoid plates are intact. The bilateral TMJ demonstrate normal articulation. The paranasal sinuses and mastoid air cells are well pneumatized. The globes and orbits are symmetric and unremarkable. No evidence of orbital rim fracture. CT CERVICAL SPINE: No acute fracture or dislocation is seen in the cervical spine. No focal osseous lesion. Vertebral body heights are well-maintained. The craniocervical junction is well-maintained. Soft tissues of the neck are unremarkable. The included lung apices are clear. IMPRESSION: 1. Small amount of subarachnoid hemorrhage in the right frontal lobe. No associated midline shift or mass effect. Recommend continued follow-up. 2. No acute fracture or dislocation in the cervical spine. 3. Right-sided nasal bone fracture with soft tissue edema present. 4. No large acute territorial ischemia. Findings were called to Dr. Larsen at 5:49 PM on 09/11/[address] Josse Billings. Dictated by: Dictated on workstation # [id number]
--- NOTE | 2022-09-11 18:01 | Diagnostic Imaging Report ---
CLINICAL HISTORY: Fall. Left hand pain. COMPARISON: None. TECHNIQUE: 3 views of the left hand. FINDINGS: There is no acute fracture or dislocation of the left hand. Alignment is anatomic. The imaged joint spaces are preserved. IMPRESSION: No acute fracture or dislocation in the left hand. Dictated by: Dictated on workstation # [id number]
--- NOTE | 2022-09-11 18:02 | Diagnostic Imaging Report ---
CLINICAL HISTORY: Fall. Right knee pain. COMPARISON: None. TECHNIQUE: 3 views of the right knee. FINDINGS: There is no acute fracture or dislocation of the right knee. Postsurgical changes of right total knee arthroplasty are visualized. No joint effusion. No focal osseous lesion. IMPRESSION: No acute fracture or dislocation in the right knee. Dictated by: Dictated on workstation # [id number]
[2022-09-11] MEDS ORDERED: LORazepam INJ 2 MG/ML (ATIVAN) VIAL IVP PRN (18:45)
[2022-09-11 19:02] LABS: INR 1.5 (0.8-1.4); PROTHROMBIN TIME PATIENT 18.1 SEC (12.2-14.7)
[2022-09-11 19:04] LABS: BASOPHILS # (AUTO) 0.1 10^3/uL (0.0-0.1); BASOPHILS % (AUTO) 0 % (0-10); EOSINOPHILS # (AUTO) 0.2 10^3/uL (0.0-0.3); EOSINOPHILS % (AUTO) 1 % (0-10); HEMATOCRIT 42 % (40-54); HEMOGLOBIN 14.4 g/dL (13.3-17.7); LYMPHOCYTES # (AUTO) 3.2 10^3/uL (1.0-4.0); LYMPHOCYTES % (AUTO) 26 % (12-44); MEAN CORPUSCULAR HEMOGLOBIN 31 pg (25-34); MEAN CORPUSCULAR HGB CONC 34 g/dL (32-36); MEAN CORPUSCULAR VOLUME 92 fL (80-99); MEAN PLATELET VOLUME 9.3 fL (9.0-12.2); MONOCYTES # (AUTO) 0.9 10^3/uL (0.0-1.0); MONOCYTES % (AUTO) 7 % (0-12); NEUTROPHILS # (AUTO) 8.2 10^3/uL (1.8-7.8); NEUTROPHILS % (AUTO) 65 % (42-75); PLATELET COUNT 247 10^3/uL (130-400); WHITE BLOOD COUNT 12.5 10^3/uL (4.3-11.0)
[2022-09-11 19:16] LABS: ALBUMIN 3.9 GM/DL (3.2-4.5); BILIRUBIN,TOTAL 0.5 MG/DL (0.1-1.0); CALCIUM 8.9 MG/DL (8.5-10.1); CREATININE SERUM 0.97 MG/DL (0.60-1.30); POTASSIUM 3.8 MMOL/L (3.6-5.0); TOTAL PROTEIN 6.5 GM/DL (6.4-8.2)
[2022-09-11 19:21] VITALS: BP 130/71
== END 2022-09-11 19:24 | disposition short-term general hospital (02) ==
LOC: EDUNIT# 16:24 → ER FS 16:25
DX: S06.6X0A Traumatic subarachnoid hemorrhage without loss of consciousness, initial encounter (principal); S02.2XXA Fracture of nasal bones, initial encounter for closed fracture; S01.511A Laceration without foreign body of lip, initial encounter; S60.222A Contusion of left hand, initial encounter; S80.01XA Contusion of right knee, initial encounter; I48.21 Permanent atrial fibrillation; R40.2252 Coma scale, best verbal response, oriented, at arrival to emergency department; R40.2362 Coma scale, best motor response, obeys commands, at arrival to emergency department; Z79.01 Long term (current) use of anticoagulants; Z23 Encounter for immunization; W18.30XA Fall on same level, unspecified, initial encounter; W22.8XXA Striking against or struck by other objects, initial encounter; Z88.5 Allergy status to narcotic agent
CPT/HCPCS: 12011; 12051; 36415; 70450; 70486; 72125; 73130; 73562; 80053; 85025; 85610; 85730; 90715

== ENCOUNTER → 2022-12-13 | Outpatient (CLI) | payer MEDICARE ==
--- NOTE | 2022-12-13 12:02 | Diagnostic Imaging Report ---
PROCEDURE: CT abdomen without contrast. TECHNIQUE: Multiple contiguous axial images were obtained through the abdomen without the use of intravenous contrast. Auto Exposure Controls were utilized during the CT exam to meet ALARA standards for radiation dose reduction. INDICATION: Follow-up abnormal abdominal CT scan. FINDINGS: Lung bases are clear. There is coronary calcific atherosclerosis. The liver appears normal. Gallbladder is surgically absent. There appears to be a remnant of gallbladder containing stones, however. Common duct is not dilated. Pancreas appears normal. Spleen is not enlarged. Adrenals are normal. There is a 7.6 cm parapelvic cyst in the right kidney. There is aortic atherosclerosis. There is no aneurysm. Appendix is normal. Small bowel is not dilated. Colon is unremarkable. IMPRESSION: Coronary atherosclerosis. Postsurgical changes from cholecystectomy, but there appears to be a portion of the gallbladder remaining that contains calculi. Clinical correlation recommended. There is aortic atherosclerosis. There is a large right renal parapelvic cyst. Dictated by: Dictated on workstation # [id number]
== END ==
LOC: RAD FS 11:07
PROVIDERS: ATTEND Family Medicine
DX: I25.10 Atherosclerotic heart disease of native coronary artery without angina pectoris (principal); K80.20 Calculus of gallbladder without cholecystitis without obstruction; I70.0 Atherosclerosis of aorta; N28.1 Cyst of kidney, acquired; Z90.49 Acquired absence of other specified parts of digestive tract; Z98.890 Other specified postprocedural states
CPT/HCPCS: 74150

== ENCOUNTER → 2022-12-27 | Outpatient (CLI) | payer MEDICARE ==
--- NOTE | 2022-12-27 16:59 | Diagnostic Imaging Report ---
EXAMINATION: CT chest without contrast. TECHNIQUE: Multiple contiguous axial images were obtained through the chest without the use of intravenous contrast. All CT scans use one or more of the following dose optimizing techniques: automated exposure control, MA and/or KvP adjustment based on patient size and exam type or iterative reconstruction. HISTORY: ABNORMAL CHEST XRAY COMPARISON: 07/17/2021 FINDINGS: Thyroid: The thyroid is normal. Mediastinum: Heart size is enlarged without significant pericardial effusion. Calcifications of the aorta and coronary vessels. Thoracic aorta is normal in caliber. No suspicious lymphadenopathy. Lungs and airways: There are subpleural bands of reticulation seen within the lungs which may be secondary to prior infection. There is no focal consolidation, pleural effusion, or pneumothorax. There is a soft tissue nodule along the right pleura in the right lower lobe measuring 1.6 x 1.7 cm. This may be minimally increased in size from 07/17/2021. No new suspicious pulmonary lesion. The airways are normal. Upper abdomen: The gallbladder is surgically absent. There may be a few small stones within the remnant cystic duct. Musculoskeletal: Degenerative changes of the spine without suspicious osseous lesion or compression fracture. IMPRESSION: 1. No acute abnormality in the chest. 2. Slightly increased size of a soft tissue nodule within the right lower lobe along the pleura. Origin is indeterminate but given its slight increase in size, evaluation with PET/CT may be helpful for evaluation. Dictated by: Dictated on workstation # [id number]
== END ==
LOC: RAD FS 11:46
PROVIDERS: ATTEND Family Medicine
DX: R93.89 Abnormal findings on diagnostic imaging of other specified body structures (principal); R91.1 Solitary pulmonary nodule
CPT/HCPCS: 71250

== ENCOUNTER → 2023-01-20 | Outpatient (CLI) | payer MEDICARE ==
[~2023-01-20] MED LIST changes: +CATHETER FLUSH 10 ML SYR IVP PRN
--- NOTE | 2023-01-21 10:57 | Diagnostic Imaging Report ---
INDICATION: Pulmonary nodule, initial staging. Serum blood glucose level at the time of injection is 114 mg/dL. Patient was administered 10.6 mCi F-18 FDG intravenously and PET imaging was performed from the top of skull to mid thighs. Noncontrast CT was also performed for attenuation correction and anatomic correlation. Correlation is made with the CT chest study from 12/27/2022. There is symmetric activity throughout the brain. Soft tissues of the neck are unremarkable. No definite mediastinal or hilar hypermetabolism is identified. No definite pulmonary parenchymal hypermetabolism is seen. Specifically, the rounded nodule noted in the right lower lobe along the pleura does not show FDG avidity. Abdomen and pelvis demonstrate physiologic activity throughout the gastrointestinal and genitourinary tract. No suspicious areas of hypermetabolism are identified. IMPRESSION: Unremarkable PET/CT study. No suspicious areas of hypermetabolism are identified. Specifically, the right lower lobe nodule does not demonstrate FDG avidity. Continued follow-up to confirm stability would be recommended. Dictated by: Dictated on workstation # [id number]
== END ==
LOC: RAD 09:15
PROVIDERS: ATTEND Family Medicine
DX: R91.1 Solitary pulmonary nodule (principal); R93.89 Abnormal findings on diagnostic imaging of other specified body structures
CPT/HCPCS: 78815; 82947; A9552

== ENCOUNTER 2023-09-03 17:21 | Emergency (ER) | payer MEDICARE ==
[~2023-09-03] VITALS: Ht 180 cm; Wt 108.0 kg
[~2023-09-03 17:21] MED LIST changes: -CATHETER FLUSH 10 ML SYR IVP PRN
[2023-09-03 17:33] VITALS: BP 100/57
--- NOTE | 2023-09-03 17:33 | ED Lower Extremity ---
General Stated Complaint: LT LEG PAIN/SWELLING History of Present Illness Date Seen by Provider: Sep 03, 2023 Time Seen by Provider: 17:28 Initial Comments 83-year-old male presents with left ankle swelling, warmth and pain. Reports that he awoke with it this morning. He does not recall any injury. Reports that it seems to be a little more swollen tonight and just want to have it checked out. He does have a history of gout. Allergies and Home Medications Allergies Coded Allergies: morphine (Verified Adverse Reaction, Unknown, hallucinations, 09/11/22) Patient Home Medication List Home Medication List Reviewed: Yes Acetaminophen (Tylenol Extra Strength) 500 Mg Tablet, 1,000 MG PO Q8H PRN for PAIN-MODERATE (5-7), (Reported) Entered as Reported by: TOLU ROJAS on 08/12/201511 Alprazolam (Alprazolam) 0.5 Mg Tablet, 0.5 MG PO TID PRN for ANXIETY, (Reported) Entered as Reported by: TOLU ROJAS on 08/12/201511 Ascorbic Acid (Vitamin C) 500 Mg Tablet, 500 MG PO DAILY, (Reported) Entered as Reported by: TOLU ROJAS on 08/12/201511 Aspirin (Aspirin EC) 81 Mg Tablet.dr, 81 MG PO DAILY, (Reported) Entered as Reported by: TOLU ROJAS on 08/12/201511 Buspirone HCl (Buspirone HCl) 5 Mg Tablet, 5 MG PO BID, (Reported) Entered as Reported by: TOLU ROJAS on 08/12/201511 Cephalexin (Cephalexin) 500 Mg Tablet, 500 MG PO QID Prescribed by: SARITA ANGELES on 09/03/231917 Cyanocobalamin (Vitamin B-12) (Vitamin B-12) 1,000 Mcg Tablet, 1,000 MCG PO DAILY, (Reported) Entered as Reported by: TOLU ROJAS on 08/12/201511 Diltiazem HCl (Cardizem Cd) 120 Mg Cap.er.24h, 120 MG PO DAILY Prescribed by: ADRIAN KRAFT on 10/12/21 1649 Ferrous Sulfate (Iron) 325 Mg Tablet, 325 MG PO DAILY, (Reported) Entered as Reported by: TOLU ROJAS on 08/12/201511 Finasteride (Finasteride) 5 Mg Tablet, 5 MG PO DAILY, (Reported) Entered as Reported by: TOLU ROJAS on 08/12/201511 Losartan Potassium (Losartan Potassium) 50 Mg Tablet, 50 MG PO DAILY, (Reported) Entered as Reported by: TOLU ROJAS on 08/12/201511 Naproxen (Naprosyn) 500 Mg Tablet, 500 MG PO BID Prescribed by: SARITA ANGELES on 09/03/23 191 Paroxetine HCl (Paroxetine HCl) 20 Mg Tablet, 20 MG PO DAILY, (Reported) Entered as Reported by: TOLU ROJAS on 08/12/20 151 Rivaroxaban (Xarelto) 20 Mg Tablet, 20 MG PO HS Prescribed by: ADRIAN KRAFT on 10/12/211718 Tamsulosin HCl (Flomax) 0.4 Mg Cap, 0.4 MG PO DAILY, (Reported) Entered as Reported by: TOLU ROJAS on 08/12/201511 Tiotropium Prompton (Spiriva) 1 Inh Aerp, 1 INH IH DAILY, (Reported) Entered as Reported by: TOLU ROJAS on 08/12/201511 Review of Systems Constitutional: no symptoms reported Respiratory: no symptoms reported Cardiovascular: no symptoms reported Gastrointestinal: no symptoms reported Musculoskeletal: see HPI Skin: see HPI Past Mryrndd-Ggasbj-Sapbmd Hx Immunizations Up To Date First/Initial COVID19 Vaccinat: DECEMBER 2020 Second COVID19 Vaccination Rene: JANUARY 2021 Third COVID19 Vaccination Date: JULY 2021 Seasonal Allergies Seasonal Allergies: No Past Medical History Surgery/Hospitalization HX: HX: COVID PNEUMONIA, ANXIETY Surgeries: Yes (colonoscopy, knee arthroplasty (lt), hernia repair, heart cath) Cardiac, Joint Replacement Respiratory: Yes (chronic bronchitis, hx of congestion of nasal sinus) COPD Cardiac: Yes (lipid disorder, dyslipidemia) High Cholesterol, Hypertension Neurological: No Genitourinary: No Gastrointestinal: Yes (benign neoplasm of colon, tubular adenoma of colon, hernia repair) Pancreatitis Musculoskeletal: Yes (osteoarthritis of right knee, wry neck, strain right patellar tendon, DDD) Degenerate Disk Disease Endocrine: No HEENT: No Cancer: Yes (benign neoplaslm of colon, tubular adenoma of colon) Psychosocial: Yes Anxiety Blood Disorders: No Physical Exam Vital Signs Vital Signs - First Documented 09/03/23 17:33 Temp 35.9 Pulse 82 Resp 16 B/P (MAP) 100/57 (71) Pulse Ox 96 O2 Delivery Room Air Capillary Refill : Height, Weight, BMI Height: '" Weight: lbs. oz. kg; 32.00 BMI Method: General Appearance: WD/WN, no apparent distress Cardiovascular: normal peripheral pulses, regular rate, rhythm Respiratory: lungs clear Gastrointestinal: non tender, soft Hips: bilateral hip non-tender Legs: bilateral leg non-tender Knees: bilateral knee non-tender Ankles: left ankle soft tissue tenderness, left ankle swelling, left ankle other (Warmth to touch mild erythema) Skin: normal color, warm/dry, other (Mild erythema medial left ankle) Procedures/Interventions Suture Size: 5-0 Progress/Results/Core Measures Results/Orders Lab Results Laboratory Tests Test 09/03/23 17:40 Range/Units White Blood Count 12.4 H 4.3-11.0 10^3/uL Red Blood Count 4.27 L 4.30-5.52 10^6/uL Hemoglobin 11.8 L 13.3-17.7 g/dL Hematocrit 37 L 40-54 % Mean Corpuscular Volume 88 80-99 fL Mean Corpuscular Hemoglobin 28 25-34 pg Mean Corpuscular Hemoglobin Concent 32 32-36 g/dL Red Cell Distribution Width 13.6 10.0-14.5 % Platelet Count 256 130-400 10^3/uL Mean Platelet Volume 9.3 9.0-12.2 fL Immature Granulocyte % (Auto) 0 % Neutrophils (%) (Auto) 55 42-75 % Lymphocytes (%) (Auto) 33 12-44 % Monocytes (%) (Auto) 9 0-12 % Eosinophils (%) (Auto) 3 0-10 % Basophils (%) (Auto) 1 0-10 % Neutrophils # (Auto) 6.8 1.8-7.8 10^3/uL Lymphocytes # (Auto) 4.1 H 1.0-4.0 10^3/uL Monocytes # (Auto) 1.2 H 0.0-1.0 10^3/uL Eosinophils # (Auto) 0.3 0.0-0.3 10^3/uL Basophils # (Auto) 0.1 0.0-0.1 10^3/uL Immature Granulocyte # (Auto) 0.0 0.0-0.1 10^3/uL D-Dimer 0.71 H 0.00-0.49 UG/ML Sodium Level 138 135-145 MMOL/L Potassium Level 4.0 3.6-5.0 MMOL/L Chloride Level 104 98-107 MMOL/L Carbon Dioxide Level 23 21-32 MMOL/L Anion Gap 11 5-14 MMOL/L Blood Urea Nitrogen 12 7-18 MG/DL Creatinine 1.17 0.60-1.30 MG/DL Estimat Glomerular Filtration Rate 61 BUN/Creatinine Ratio 10 Glucose Level 165 H 70-105 MG/DL Uric Acid 6.8 2.6-7.2 MG/DL Calcium Level 8.5 8.5-10.1 MG/DL Corrected Calcium 8.7 8.5-10.1 MG/DL Total Bilirubin 0.4 0.1-1.0 MG/DL Aspartate Amino Transf (AST/SGOT) 18 5-34 U/L Alanine Aminotransferase (ALT/SGPT) 14 0-55 U/L Alkaline Phosphatase 93 40-136 U/L Total Protein 6.6 6.4-8.2 GM/DL Albumin 3.7 3.2-4.5 GM/DL My Orders Orders - ANGELES,SARITA L DO Cbc And Automated Diff (09/03/23 17:38) Comprehensive Metabolic Panel (09/03/23 17:38) Fibrin Degradation Products (09/03/23 17:38) Ankle 3 View Left (09/03/23 17:38) Uric Acid (09/03/23 17:42) Cephalexin Capsule (Cephalexin Capsule) (09/03/23 19:15) Ketorolac Injection (Ketorolac Injection (09/03/23 19:15) Medications Given in ED Current Medications Medications Dose Ordered Sig/Sahra Route Start Time Stop Time Status Last Admin Dose Admin Cephalexin HCl 500 mg ONCE ONCE PO 09/03/23 19:15 09/03/23 19:16 DC 09/03/23 19:17 500 MG Ketorolac Tromethamine 15 mg ONCE ONCE IM 09/03/23 19:15 09/03/23 19:16 DC 09/03/23 19:17 15 MG Vital Signs/I&O 09/03/23 17:33 Temp 35.9 Pulse 82 Resp 16 B/P (MAP) 100/57 (71) Pulse Ox 96 O2 Delivery Room Air Progress Progress Note : Progress Note Patient's diagnostic studies were ordered reviewed and interpreted by me. Patient's labs show slight elevation of his white count otherwise no significant acute findings. Patient's x-ray was ordered reviewed with initial interpretation negative by me with final interpretation per radiology report. Patient has possible sprain versus a reactive arthritis versus a mild cellulitis versus gout. Patient did have a negative uric acid so his unlikely gout. With a mild warmth and erythema along with some mild elevated white count I will treat him for cellulitis. 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 For reactive arthritis, gout and swelling discomfort I will prescribe him Naprosyn which she can take twice daily. He should follow-up with a primary care provider in a couple days for recheck of his symptoms. He is stable and discharged home Diagnostic Imaging Diagonstic Imaging: Xray Plain Films/CT/US/NM/MRI: ankle Comments ANKLE 3 VIEW LEFT INDICATION: 83-year-old male with the left ankle pain and swelling. No known injury. COMPARISON: None. FINDINGS: Three views of the left ankle show mild degenerative changes in the ankle and hindfoot. There is a plantar calcaneal spur. There is no evidence of acute fracture or subluxation seen. The ankle mortise is preserved. Some basilar calcifications are seen. IMPRESSION: Degenerative changes in the left ankle but no fracture or subluxation seen. Departure Impression Primary Impression: Gout attack Qualified Codes: M10.9 - Gout, unspecified Additional Impression: Cellulitis and abscess of left lower extremity Disposition: HOME, SELF-CARE Condition: Stable Departure-Patient Inst. Referrals: MIR SALMERON MD (PCP) Primary Care Physician Patient Instructions: Cellulitis (Skin Infection), Adult ED, Gout ED Add. Discharge Instructions: Follow-up with your primary care provider Tuesday next week for dimitri mann. Scripts Naproxen (Naprosyn) 500 Mg Tablet 500 MG PO BID, #30 TAB 0 Refills Prov: ANGELES,SARITA L DO 09/03/23 Cephalexin (Cephalexin) 500 Mg Tablet 500 MG PO QID, #20 TAB 0 Refills Prov: ANGELES,SARITA L DO 09/03/23 ANGELES,SARITA L DO Sep 03, 2023 17:33
--- NOTE | 2023-09-03 18:05 | Diagnostic Imaging Report ---
INDICATION: 83-year-old male with the left ankle pain and swelling. No known injury. COMPARISON: None. FINDINGS: Three views of the left ankle show mild degenerative changes in the ankle and hindfoot. There is a plantar calcaneal spur. There is no evidence of acute fracture or subluxation seen. The ankle mortise is preserved. Some basilar calcifications are seen. IMPRESSION: Degenerative changes in the left ankle but no fracture or subluxation seen. Dictated by: Dictated on workstation # [id number]
[2023-09-03 18:06] LABS: BASOPHILS # (AUTO) 0.1 10^3/uL (0.0-0.1); BASOPHILS % (AUTO) 1 % (0-10); EOSINOPHILS # (AUTO) 0.3 10^3/uL (0.0-0.3); EOSINOPHILS % (AUTO) 3 % (0-10); HEMATOCRIT 37 % (40-54); HEMOGLOBIN 11.8 g/dL (13.3-17.7); LYMPHOCYTES # (AUTO) 4.1 10^3/uL (1.0-4.0); LYMPHOCYTES % (AUTO) 33 % (12-44); MEAN CORPUSCULAR HEMOGLOBIN 28 pg (25-34); MEAN CORPUSCULAR HGB CONC 32 g/dL (32-36); MEAN CORPUSCULAR VOLUME 88 fL (80-99); MEAN PLATELET VOLUME 9.3 fL (9.0-12.2); MONOCYTES # (AUTO) 1.2 10^3/uL (0.0-1.0); MONOCYTES % (AUTO) 9 % (0-12); NEUTROPHILS # (AUTO) 6.8 10^3/uL (1.8-7.8); NEUTROPHILS % (AUTO) 55 % (42-75); PLATELET COUNT 256 10^3/uL (130-400); WHITE BLOOD COUNT 12.4 10^3/uL (4.3-11.0)
[2023-09-03 18:19] LABS: BILIRUBIN,TOTAL 0.4 MG/DL (0.1-1.0); CALCIUM 8.5 MG/DL (8.5-10.1)
[2023-09-03 18:24] LABS: CREATININE SERUM 1.17 MG/DL (0.60-1.30)
[2023-09-03 18:25] LABS: ALBUMIN 3.7 GM/DL (3.2-4.5); TOTAL PROTEIN 6.6 GM/DL (6.4-8.2)
[2023-09-03] MEDS ORDERED: CEPHALEXIN 250 MG CAPSULE PO ONE (19:15)
[2023-09-03] MEDS ORDERED: KETOROLAC INJ 15 MG/ML VIAL IM ONE (19:15)
[2023-09-03] MEDS ORDERED: CEPH500T PO (19:18)
[2023-09-03] MEDS ORDERED: NAPR-1071 PO (19:18)
== END 2023-09-03 19:28 | disposition home or self-care (01) ==
LOC: EDUNIT# 17:21 → ER FS 17:23
DX: L03.116 Cellulitis of left lower limb (principal); L02.416 Cutaneous abscess of left lower limb; M10.9 Gout, unspecified
CPT/HCPCS: 36415; 73610; 80053; 84550; 85025; 85379; 96372